=== PATIENT | male | born 1955 | race Caucasian/White ===

== ENCOUNTER → 2018-02-21 08:23 | Outpatient (CLI) | payer MEDICARE, SELFPAY ==
[2018-02-20 13:35] VITALS: BMI 25.9
[2018-02-21 10:19] LABS: ALB/GLOB Ratio 1.1 RATIO (0.9-2.4); AST(SGOT) 16 U/L (15-37); Alanine Aminotransfer ALT/SGPT 26 U/L (16-61); Albumin, Serum 3.6 g/dL (3.2-5.0); Alkaline Phosphatase 93 U/L (45-117); Anion Gap 5 (5-15); BUN 22 mg/dL (7-18); BUN/Creat Ratio 20.6 RATIO (10-20); Calcium,Total 10.2 mg/dL (8.5-10.1); Chloride 107 mmol/L (98-107); Creatinine, Serum 1.07 mg/dL (0.70-1.30); EST Glomerular Filtration Rate 74 mL/min (>60); Est Glom Filt Rate - Afr Amer 89 mL/min (>60); Globulin 3.3 g/dL (2.2-4.2); Glucose 86 mg/dL (74-106); Potassium 4.2 mmol/L (3.5-5.1); Protein, Total 6.9 g/dL (6.4-8.2); Sodium Level 140 mmol/L (136-145)
--- OUTSIDE RECORDS SUMMARY | 2018-04-27 21:07 | XMS RPT_ITS ---
:1955 Author Organization [facility] Care Team Providers Name Role Phone BROWN, RAJEEV Attending Unavailable BROWN, RAJEEV Primary Care Unavailable Brown, Rajeev Attending Unavailable Brown, Rajeev Referring Unavailable Brown, Rajeev Attending Unavailable Brown, Rajeev Referring Unavailable Brown, Rajeev Primary Care Unavailable Brown, Rajeev Attending Unavailable Brown, Rajeev Referring Unavailable Brown, Rajeev Attending Unavailable Brown, Rajeev Referring Unavailable Brown, Rajeev Attending Unavailable Brown, Rajeev Primary Care Unavailable Brown, Rajeev Referring Unavailable Brown, Rajeev Attending Unavailable Brown, Rajeev Referring Unavailable Brown, Rajeev Primary Care Unavailable PROBLEMS PROBLEMS DATE TYPE CONDITION / CODE ATTENDING STATUS SOURCE 02/28/2018 Unknown I10 - Essential Lee Rajeev Active [place] (primary) [facility] hypertension / Hospital I10(ICD-10) Repository 05/28/2017 Unknown Z00.00 - Encounter [place] Active [place] for general adult [facility] examination Repository without abnormal findings / Z00.00(ICD-10) PROCEDURES PROCEDURES No Procedure Records FoundRESULTS RESULTS BRAIN W/WO CONTRAST Observed: 02/28/2018 Status: F Source: JEA[place] 10:10 AM [facility] HOSPITAL REPOSITORY [facility] Imaging Services [address] [place] [address] Brain W/WO Contrast MR#: [id number] Acct: [id number] Name: KALYAN BARBOSA Rep #: [id number] : 1955 M 63 From: Shlomo Rose PCP: Rajeev Howard DO Status: REG CLI Study: Brain W/WO Contrast Date of Exam: 02/28/18 Exam# [id number] Ordering Dr: Rajeev Howard DO STUDY: MRI BRAIN WITH AND WITHOUT CONTRAST REASON FOR EXAM: Male, 63 years old. CHRONIS HEADACHES X 3 MONS. TECHNIQUE: Standardized multiplanar fat and water weighted pulse sequences were obtained. 9 ml of Gadavist contrast material was administered intravenously for the contrast portion of the examination. COMPARISON: None. FINDINGS: Normal size of the ventricles and extra-axial spaces for the patient's age. Normal white matter tracts of the supratentorial brain. Normal bilateral basal ganglia. Normal thalami. There is no extra-axial fluid accumulation. Normal flow voids within the major intracranial circulation suggesting patency by spin echo criteria. Normal venous enhancement. There is no enhancing intra-axial or extra-axial abnormality. Normal sella turcica, pituitary gland, infundibular stalk, optic chiasm and hypothalamus. Normal tectal plate and pineal gland. Normal midbrain, zane and medulla. Normal cerebellum. Normal basal cisterns. Normal bilateral temporal bones. Normal bilateral internal auditory canals. No demonstrated orbital abnormality, within the constraints of a routine brain study. There is mucoperiosteal inflammatory disease of the paranasal sinuses consistent with mild chronic sinusitis. MRI/Brain W/WO Contrast IMPRESSION: No acute intracranial abnormality or masses. Mild paranasal sinus disease. Electronically Signed: Shlomo Rose MD at 10:59 EST Tel , Service support , CC: Rajeev Howard DO Vice President Quality: Signed CATACHOL+VMA, 24 HR UR Collected: 02/22/2018 Status: F Source: JEA[place] 7:38 AM [facility] REPOSITORY TYPE CODE TESTS RESULT OUT OF RANGE REFERENCE UNITS LAB L3600.0300 Undefined ug/L Normal 7 EPINEPHRINE, UR LAB L3600.0400 0-20 ug/24 hr Normal 5 EPINEPHRINE, U24 LAB L3600.0500 Undefined ug/L Normal 56 NOREPINEPH,U R LAB L3600.0550 0-135 ug/24 hr Normal 39 NOREPINEPH,U 24 LAB L3600.0600 Undefined ug/L Normal 251 DOPAMINE,UR LAB L3600.0700 0-510 ug/24 hr Normal 176 DOPAMINE,U24 Result Comment: Performed at: [address] [id number] Care Director: Seamus Yee MD, Phone: [phone] TESTING PERFORMED AT [facility]. ORIGINAL REPORT ON FILE IN LAB CONTAINS ADDITIONAL TEST SITE INFORMATION. LAB L3600.0900 Undefined mg/L Normal VMA,UR 4.3 LAB L3600.1000 0.0-7.5 mg/24 hr Normal VMA,24UR 3.0 Result Comment: This test was developed and its performance characteristics determined by [facility]. It has not been cleared or approved by the Food and Drug Administration. Performed By: #### L3600.0055 #### [facility] (refer to report for specific site) refer to report for address and phone number COMPREHENSIVE METABOLIC Collected: 02/21/2018 Status: F Source: JEANA [place] 8:31 AM [facility] REPOSITORY TYPE CODE TESTS RESULT OUT OF RANGE REFERENCE UNITS LAB L501.0100 74-106 mg/dL Normal GLU 86 Result Comment: Please note revised GLUCOSE reference range effective 2017. LAB L501.1000 7-18 mg/dL High BUN 22 LAB L501.1100 0.70-1.30 mg/dL Normal CREAT,SERUM 1.07 Result Comment: The validity of the calculated GFR AND GFRAA in patients over 70 years has not been determined. Clinical correlation is essential. LAB L501.1110 >60 mL/min Normal EST GFR 74 Result Comment: Non- GFR Calc LAB L501.1115 >60 mL/min Normal EST GFR - AA 89 Result Comment: GFR Calc LAB L501.1300 10-20 RATIO High BUN/CRE 20.6 LAB L501.1500 6.4-8.2 g/dL T Normal PROT 6.9 LAB L501.1800 3.2-5.0 g/dL Normal ALB 3.6 LAB L501.1950 2.2-4.2 g/dL Normal GLOB 3.3 LAB L501.2000 0.9-2.4 RATIO Normal A/G 1.1 LAB L501.2200 8.5-10.1 mg/dL High CA 10.2 LAB L501.4100 15-37 U/L Normal AST 16 LAB L501.4305 45-117 U/L Normal ALK P 93 LAB L501.4405 16-61 U/L Normal ALT 26 LAB L501.4600 0.20-1.00 mg/dL T Normal BILI 0.50 LAB L501.5300 136-145 mmol/L NA Normal 140 LAB L501.5600 3.5-5.1 mmol/L K Normal 4.2 LAB L501.5900 98-107 mmol/L CL Normal 107 LAB L501.6100 21.0-32.0 mmol/L Normal CO2 28.0 LAB L501.6200 5-15 Normal GAP 5 Performed By: #### L500.4050 #### [facility] [address] [place], [address] INTERNAL MEDICINE Observed: 02/20/2018 Status: F Source: JEANA OFFICE VISIT 2:05 PM [facility] REPOSITORY [facility] [address] [place] [address] [place] [address] OFFICE VISIT Date of Service: 02/20/18 MR#: [id number] Acct: [id number] Name: KALYAN BARBOSA Rep #: [id number] : 1955 Provider: Rajeev Howard DO Age/Sex: 63/M Location: [facility] Status: Signed Intake Vital Signs02/20/18 Body Mass Index (BMI) 25.9 Intake Visit Reasons: BP MED PROB, INS INELIGIBLE Chief Complaint: Prob with BP Med - BP going up in the evenings Is patient in pain?: No Allergies No Known Allergies Allergy (Unverified 02/20/18 13:34) Medications valsartan 320 mg-hydrochlorothiazide 12.5 mg tablet 1 tab PO DAILY #30 tab 01/23/18 [Rx Confirmed 02/20/18] PFSH Medical History Hypertension (Chronic) Surgical History History of back surgery (Acute) History of eye surgery (Acute) History of knee surgery (Acute) Family History Father CVA (cerebral vascular accident) Hypertension Social History Smoking Status: Never smoker alcohol intake: current alcohol intake frequency: holidays/special occasions only substance use type: does not use what type of physical activity do you participate in: weight training, bicycling, running frequency: daily HPI HPI Chief Complaint: Prob with BP Med - BP going up in the evenings Details: KALYAN BARBOSA, is a 63 M who presents to the office today for elevation of his blood pressure that occurs in the evening. And always associated with a worsening headache. ROS Const Constitutional: Positive for headache(s) (When BP is in the 140's/150's); no chills, fatigue, fever(s), frequent falls, malaise, weakness, sleep problems or change in appetite Eyes Eyes: No blurry vision, change in vision, double vision, discharge or visual disturbances ENT ENT: Positive for headache(s) (When BP is in the 140's/150's); no abnormal hearing, ear pain, ear pressure, tinnitus or dizziness/vertigo Resp Respiratory: No cough, shortness of breath or wheezing Cardio Cardiology: Positive for other (By evening BP goes up 145/98, 160/100); no chest pain at rest, chest pain with exertion, shortness of breath, dyspnea on exertion, generalized swelling, irregular heart rhythm, lightheadedness, orthopnea, fast heart rate or palpitations Gastro GI: No abdominal pain, change in bowel habits, constipation, diarrhea, nausea/dyspepsia or vomiting Genitourinary Male: No difficulty urinating, burning urination, painful urination, urinary incontinence, urinary frequency, urinary urgency, urinary hesitancy, urinary retention, blood in urine, Frequent nighttime urination/ nocturia, sexual problems, testicle lump or testicle pain Musc Musculoskeletal: No joint pain, back pain, joint swelling, limited range of motion, numbness or tingling Skin Skin: No change in skin color, itching, rash or wounds Breast Breast: No breast lump or breast pain Neuro Neurology: Positive for headache(s) (When BP is in the 140's/150's); no frequent falls, weakness, visual disturbances, abnormal hearing, numbness, tingling, unsteady gait/balance, dizziness, loss of vision or memory loss Psych Psychiatric: No change in appetite, No memory loss, No anxiety, No depression, No Thoughts of harming yourself/Others Endo Endocrine: No fatigue, heat intolerance, increased thirst/drinking, increased hunger or increased urination Aller/Imm Allergy/Immunologic: No wheezing, itchy eyes or seasonal allergy symptoms Darrian/Lymp Hematologic/Lymphatic: No easy bleeding, easy bruising or enlarged lymph nodes Exam Const General: cooperative, healthy appearing Nutritional Appearance: average body habitus Orientation: oriented x3 HENMT Head: normal to inspection Eyes General: appearance normal, both eyes and all related structures Sclera: sclerae normal Cornea: corneas normal Pupils: PERRL Direct ophthalmoscopy: normal light reflex, fundi normal bilaterally Neck Neck: normal visual inspection Neck mass: No Thyroid: thyroid normal Chest Chest palpation AND inspection: normal inspection of the chest Resp Effort AND Inspection: normal respiratory effort Auscultation: Bilateral: Clear to Auscultation GI Rectal Exam: visual inspection normal, prostate normal, normal sphincter tone Skin General: no rashes or lesions noted Neuro General: alert, awake Cranial Nerves: CN's II-XI intact bilaterally Cognition: normal cognition Speech: speech normal Gait: normal gait Motor: muscle tone normal throughout Extrem General: normal to inspection, normal exam except as noted Assessment AND Plan Problems 1. Hypertension I10 2. Chronic headaches R51 Plan This patient comes presenting essentially with a chronic headache. He says he has agreed to headache all at time. And this association with the headache as the headache increases in intensity he has blood pressure goes up so that even though the blood pressure is normal in the morning toward the end of the day the blood pressure is quite high as high as 160/110 according to this patient. Since his morning pressures are always normal as was his pressure now seems to me the headache is causing the elevated pressure not a failure of medication. So I am going to look for secondary causes of hypertension as well as primary [employer] causes and then get back with this patient after those results are in. Orders Orders: Medications Discontinued: losartan-hydrochlorothiazide 100-12.5 mg Discontinued Reaso1 tab PO QDAY 120 tabs 4RF n: Order Changed Coding Level of Care Code Off vis,est,level 3 Diagnoses Hypertension I10 Chronic headaches R51 02/20/18 1405 <Electronically signed by Rajeev Howard DO> Date Rajeev Howard DO Cosigner Signature: Date (if applicable) CC: INTERNAL MEDICINE Observed: 01/03/2018 Status: F Source: JEANA OFFICE VISIT 4:58 PM [facility] Internal Medicine [address] [place] [address] [address] [place] [address] OFFICE VISIT Date of Service: 01/03/18 MR#: [id number] Acct: [id number] Name: KALYAN BARBOSA Rep #: [id number] : 1955 Provider: Rajeev Howard DO Age/Sex: 62/M Location: [facility] Status: Signed Intake Vital Signs01/03/18 Body Mass Index (BMI) 25.9 01/03/18 Height 5 ft 10 in 01/03/18 Weight: 182 lb 2 oz Intake Visit Reasons: migraines, goes by ED [employer] Required: No Accompanied by: None Is patient in pain?: No Allergies No Known Allergies Allergy (Unverified 04/25/17 09:52) Medications losartan 100 mg-hydrochlorothiazide 12.5 mg tablet 1 tab PO QDAY #120 tab 12/11/17 [Rx] valsartan 160 mg-hydrochlorothiazide 12.5 mg tablet 1 tab PO DAILY #30 tab 01/03/18 [Rx Confirmed 01/03/18] PFSH Medical History Hypertension (Chronic) Surgical History History of eye surgery (Acute) History of back surgery (Acute) History of knee surgery (Acute) Family History Father CVA (cerebral vascular accident) Hypertension Social History Smoking Status: Never smoker alcohol intake: current alcohol intake frequency: holidays/special occasions only substance use type: does not use what type of physical activity do you participate in: weight training, bicycling, running frequency: daily HPI HPI Details: KALYAN BARBOSA, is a 62 M who presents to the office today for headaches,Not in one location, usually unilateral, no nausea. ROS Const Constitutional: Positive for headache(s); no body ache, chills, fatigue, fever(s), frequent falls, weight change, sleep problems, change in appetite, snoring, excessive sweating or weakness Eyes Eyes: No blurry vision, change in vision, eye pain or light sensitivity ENT ENT: Positive for headache(s) and neck pain; no abnormal hearing, ear pain, tinnitus, nasal congestion, nasal discharge or sore throat Resp Respiratory: No snoring, cough, shortness of breath or wheezing Cardio Cardiology: No excessive sweating, chest pain at rest, chest pain with exertion, shortness of breath, dyspnea on exertion, orthopnea, palpitations or lightheadedness Gastro GI: No abdominal pain, change in bowel habits, diarrhea, constipation, vomiting, nausea/dyspepsia or cramping Musc Musculoskeletal: Positive for neck pain; no abnormal walking, joint pain, back pain, limited range of motion, numbness, tingling or muscle weakness Skin Skin: No redness, dry skin, itching, lesions, wounds or rash Neuro Neurology: Positive for headache(s); no frequent falls, weakness, abnormal hearing, abnormal walking, numbness, tingling, abnormal speech, dizziness or memory loss Psych Psychiatric: No change in appetite, No memory loss, No anxiety, No depression, No Thoughts of harming yourself/Others Endo Endocrine: No fatigue, excessive sweating, cold intolerance, increased thirst/drinking, heat intolerance, increased hunger or flushing Aller/Imm Allergy/Immunologic: No wheezing, itchy eyes, seasonal allergy symptoms or hives Darrian/Lymp Hematologic/Lymphatic: No easy bleeding, easy bruising or enlarged lymph nodes Exam Const General: cooperative, healthy appearing Nutritional Appearance: average body habitus Orientation: oriented x3 HENMT Head: normal to inspection Eyes General: appearance normal, both eyes and all related structures Sclera: sclerae normal Cornea: corneas normal Pupils: PERRL Direct ophthalmoscopy: normal light reflex, fundi normal bilaterally Neck Neck: normal visual inspection Neck mass: No Thyroid: thyroid normal Chest Chest palpation AND inspection: normal inspection of the chest Resp Effort AND Inspection: normal respiratory effort Auscultation: Bilateral: Clear to Auscultation GI Rectal Exam: visual inspection normal, prostate normal, normal sphincter tone Musc Musculoskeletal: No joint tenderness, joint redness, joint warmth, decreased ROM, spinal deformity, scoliosis to L, scoliosis to R, lordosis or muscle weakness Skin General: no rashes or lesions noted Neuro General: alert, awake Cranial Nerves: CN's II-XI intact bilaterally Cognition: normal cognition Speech: speech normal Gait: normal gait Motor: muscle tone normal throughout Extrem General: normal to inspection, normal exam except as noted Assessment AND Plan Problems 1. Hypertension I10 Plan This patient is a poorly controlled hypertensive. I think that is the cause of his headaches. They do not fit the pattern of migraines and physical exam was completely within normal limits. I have changed his anti-hypertensive. He is to call me if the headaches continue, and he is to monitor his blood pressures at home. Medications New: Coding Level of Care Code Off vis,est,level 3 Diagnoses Hypertension I10 01/03/18 5821 <Electronically signed by Rajeev Howard DO> Date Rajeev Howard DO Cosigner Signature: Date (if applicable) CC: CBC Collected: 04/25/2017 Status: F Source: [facility] [employer] 11:29 AM [facility] REPOSITORY TYPE CODE TESTS RESULT OUT OF REFERENCE UNITS RANGE LAB WBC(LOINC) 4.60-10.80 10 3/mcL WBC 8.90 LAB RBCCT(LOINC 4.04-6.13 10 6/mcL ) RBC 4.95 LAB HGB(LOINC) 14.0-18.0 G/dL Hgb 15.2 LAB HCT(LOINC) 42.0-52.0 % Hct 45.4 LAB MCV(LOINC) 80.0-94.0 fL MCV 91.6 LAB MCH(LOINC) 27.0-31.2 pg MCH 30.6 LAB MCHC(LOINC) 31.8-35.4 G/dL MCHC 33.5 LAB RDW(LOINC) 11.5-14.5 % RDW 13.5 LAB PLT(LOINC) 130-400 10 3/mcL Platelet 297 LAB MPV(LOINC) 7.4-10.4 fL MPV 7.9 Performed By: #### CBC, ADIFF, ANEU, LIPID, GFR, CMP #### [facility] [address] [address] .AUTO DIFF Collected: 04/25/2017 Status: F Source: [facility] 11:29 AM [facility] REPOSITORY TYPE CODE TESTS RESULT OUT OF REFERENCE UNITS RANGE LAB JEFFERY(LOINC) 37.0-80.0 % Neutrophil % 73.7 LAB LYM(LOINC) 10.0-50.0 % Lymphocyte % 16.8 LAB MON(LOINC) 1.7-13.0 % Monocyte % 6.8 LAB EO(LOINC) 0.0-7.0 % Eosinophil % 1.5 LAB BAS(LOINC) 0.0-2.5 % Basophil % 1.2 LAB ABLYM(LOIN 0.77-3.85 10 3/mcL C) Lymphocyte, 1.50 Absolute LAB RADHA(LOINC 0.15-1.00 10 3/mcL ) Monocyte, 0.60 Absolute LAB AEOS(LOINC 0.00-0.40 10 3/mcL ) Eosinophil, 0.10 Absolute LAB ABAS(LOINC 0.00-0.19 10 3/mcL ) Basophil, 0.10 Absolute Performed By: #### CBC, ADIFF, ANEU, LIPID, GFR, CMP #### [address] [address] .NEUABS Collected: 04/25/2017 Status: F Source: [facility] [employer] 11:29 [facility] REPOSITORY TYPE CODE TESTS RESULT OUT OF REFERENCE UNITS RANGE LAB ANEU(LOINC) 2.85-6.16 10 3/mcL High Neutrophil, 6.60 Absolute Performed By: #### CBC, ADIFF, ANEU, LIPID, GFR, CMP #### [address] [address] LIPID Collected: 04/25/2017 Status: F Source: [facility] 11:29 [facility] REPOSITORY TYPE CODE TESTS RESULT OUT OF REFERENCE UNITS RANGE LAB CHOL(LOINC 131-200 mg/dL ) Cholesterol High 215 Result Comment: Cholesterol Reference Interval: Less than 200 Desirable 200-239 Borderline high risk 240 and above High risk LAB TRIG(LOINC) 40-150 mg/dL Triglycerides 66 Result Comment: Triglyceride Reference Interval: Less than 150 Normal 150-199 Borderline high risk 200-499 High risk 500 or higher Very high risk LAB HD(LOINC) 35-90 mg/dL HDL Cholesterol 61 Result Comment: HDL Reference Interval: Less than 40 Low - high risk 60 or above Optimal/lowers risk LAB LDL(LOINC) 0-130 mg/dL LDL High Cholesterol 141 Result Comment: LDL is a calculated result and requires a 12-hr fast. LDL Reference Interval: Less than 100 Optimal 100-129 Near or above optimal 130-159 Borderline high risk 160-189 High risk 190 and above Very high risk Performed By: #### CBC, ADIFF, ANEU, LIPID, GFR, CMP #### [facility] [address] [address] .GFR Collected: 04/25/2017 Status: F Source: [facility] 11:29 [facility] REPOSITORY TYPE CODE TESTS RESULT OUT OF REFERENCE UNITS RANGE LAB GFRAA(LOINC ml/min/1.73 ) sqm GFR 87 Latvian Result Comment: GFR Population mean for , Non- Americans Ages 20-29 = 116 mL/min/1.73 sq.m. Ages 30-39 = 107 mL/min/1.73 sq.m. Ages 40-49 = 99 mL/min/1.73 sq.m. Ages 50-59 = 93 mL/min/1.73 sq.m. Ages 60-69 = 85 mL/min/1.73 sq.m. Ages 70+ = 75 mL/min/1.73 sq.m. Chronic Kidney Disease: Less than 60 mL/min/1.73 square meters End Stage Renal Disease: Less than 15 mL/min/1.73 square meters LAB GFRNO(LOINC) ml/min/1.73sqm GFR Non- >60 Result Comment: GFR Population mean for , Non- Americans Ages 20-29 = 116 mL/min/1.73 sq.m. Ages 30-39 = 107 mL/min/1.73 sq.m. Ages 40-49 = 99 mL/min/1.73 sq.m. Ages 50-59 = 93 mL/min/1.73 sq.m. Ages 60-69 = 85 mL/min/1.73 sq.m. Ages 70+ = 75 mL/min/1.73 sq.m. Chronic Kidney Disease: Less than 60 mL/min/1.73 square meters End Stage Renal Disease: Less than 15 mL/min/1.73 square meters Performed By: #### CBC, ADIFF, ANEU, LIPID, GFR, CMP #### [facility] [address] [address] [place], [place] [address] CMP Collected: 04/25/2017 Status: F Source: [facility] 11:29 AM [facility] REPOSITORY TYPE CODE TESTS RESULT OUT OF REFERENCE UNITS RANGE LAB 1547-9 80-115 mg/dL GLUCOSE 87 LAB NA(LOINC) 136-146 mEq/L Sodium Level 139 LAB K(LOINC) 3.5-5.1 mEq/L Potassium Level 5.0 LAB CL(LOINC) 98-107 mEq/L Chloride 104 LAB CO2(LOINC) 23-31 mEq/L CO2 27 LAB EBAL(LOINC mEq/L ) Electrolyte Balance 8.0 LAB BUN(LOINC) 7.0-18.0 mg/dL BUN High 18.1 LAB CRE(LOINC) 0.6-1.2 mg/dL Creatinine Lvl (s) 1.0 LAB BC(LOINC) 7-27 ratio BUN/Creatinine 18 Ratio LAB CA(LOINC) 8.4-10.2 mg/dL Calcium Lvl High 11.0 LAB PROT(LOINC 6.0-8.3 G/dL ) Total Protein 7.1 LAB ALB(LOINC) 3.4-4.8 G/dL Albumin Level 4.5 LAB GLB(LOINC) G/dL Globulin 2.6 LAB AG(LOINC) 1.1-2.5 ratio A/G Ratio 1.7 LAB BILT(LOINC 0.2-1.0 mg/dL ) Bili Total 0.3 LAB AP(LOINC) 40-135 IU/L Alk Phos 97 LAB AST(LOINC) 10-40 IU/L AST/SGOT 23 LAB ALT(LOINC) 10-35 IU/L ALT/SGPT 18 Performed By: #### CBC, ADIFF, ANEU, LIPID, GFR, CMP #### [place] [place], [place] [address] INTERNAL MEDICINE Observed: 04/25/2017 Status: F Source: JEANA OFFICE VISIT 10:42 AM [facility] REPOSITORY [facility] [address] [place] [address] OFFICE VISIT Date of Service: 04/25/17 MR#: [id number] Acct: [id number] Name: KALYAN BARBOSA Rep #: [id number] : 1955 Provider: Rajeev Howard DO Age/Sex: 62/M Location: [facility] Status: Signed Intake Vital Signs04/25/17 Height 5 ft 10 in 04/25/17 Weight: 181 lb 04/25/17 Body Mass Index (BMI) 25.9 04/25/17 Blood Pressure 128/81 04/25/17 Blood Pressure Location Lt brachial Intake Visit Reasons: YEARLY CHECK UP Chief Complaint: yearly physical Is patient in pain?: No Allergies No Known Allergies Allergy (Unverified 04/25/17 09:52) Medications losartan 100 mg-hydrochlorothiazide 12.5 mg tablet 1 tab PO QDAY #120 tab 04/25/17 [Rx Confirmed 04/25/17] PFSH Medical History Hypertension (Chronic) Surgical History History of back surgery (Acute) History of knee surgery (Acute) Family History Father CVA (cerebral vascular accident) Hypertension Social History Smoking Status: Never smoker alcohol intake: current alcohol intake frequency: holidays/special occasions only substance use type: does not use what type of physical activity do you participate in: weight training, bicycling, running frequency: daily HPI HPI Chief Complaint: yearly physical Details: KALYAN BARBOSA, is a 62 M who presents to the office today for a check up. ROS Const Constitutional: No weight change, body ache, chills, fatigue, sleep problems, fever(s), change in appetite, snoring, weakness, frequent falls, headache(s) or excessive sweating Eyes Eyes: No change in vision, eye pain, light sensitivity or blurry vision ENT ENT: No headache(s), abnormal hearing, ear pain, tinnitus, nasal congestion, sore throat or neck pain Resp Respiratory: No snoring, cough, shortness of breath or wheezing Cardio Cardiology: No excessive sweating, chest pain at rest, chest pain with exertion, shortness of breath, dyspnea on exertion, palpitations, orthopnea or lightheadedness Gastro GI: No abdominal pain, change in bowel habits, constipation, diarrhea, vomiting, nausea/dyspepsia or cramping Musc Musculoskeletal: No neck pain, abnormal walking, joint pain, back pain, limited range of motion, numbness, tingling or muscle weakness Skin Skin: No redness, dry skin, itching, lesions, wounds or rash Neuro Neurology: No weakness, frequent falls, headache(s), abnormal hearing, abnormal walking, numbness, tingling, abnormal speech, dizziness or memory loss Psych Psychiatric: No change in appetite, No memory loss, No anxiety, No depression, No Thoughts of harming yourself/Others Endo Endocrine: No fatigue, excessive sweating, cold intolerance, increased thirst/drinking, heat intolerance, flushing or increased hunger Aller/Imm Allergy/Immunologic: No wheezing, itchy eyes, hives or seasonal allergy symptoms Darrian/Lymp Hematologic/Lymphatic: No easy bleeding, easy bruising or enlarged lymph nodes Exam Const General: cooperative, healthy appearing Nutritional Appearance: average body habitus Orientation: oriented x3 HENMT Head: normal to inspection Eyes General: appearance normal, both eyes and all related structures Neck Neck: normal visual inspection Neck mass: No Thyroid: thyroid normal Chest Chest palpation AND inspection: normal inspection of the chest Resp Effort AND Inspection: normal respiratory effort Auscultation: Bilateral: Clear to Auscultation GI Rectal Exam: visual inspection normal, prostate normal, normal sphincter tone Scrotum: scrotum normal Testes: normal Musc Musculoskeletal: No joint tenderness, joint redness, joint warmth, decreased ROM, spinal deformity, scoliosis to L, scoliosis to R, lordosis or muscle weakness Skin General: no rashes or lesions noted Neuro General: alert, awake Cranial Nerves: CN's II-XI intact bilaterally Cognition: normal cognition Speech: speech normal Gait: normal gait Motor: muscle tone normal throughout Extrem General: normal to inspection, normal exam except as noted Assessment AND Plan 1. Preventative health care Z00.00 Plan Mr. Barbosa is here for a well male exam. Colonoscopy is up-to-date immunizations are up-to-date. He needs preventative blood work as well as blood work to evaluate his renal status. We discussed his exercise regime which is very good he has no weight issues he has no dietary issues in general his health was excellent. 2. Hypertension I10 Plan Blood pressure is under excellent control. Orders Orders: Plan Detail Other Medications New: Follow Up 1 Year Coding Level of Care Code Off vis,new,prev 40-64yrs Diagnoses Preventative health care Z00.00 Hypertension I10 04/25/17 1042 <Electronically signed by Rajeev Howard DO> Date Rajeev Howard DO Cosigner Signature: Date (if applicable) CC: ALLERGIES ALLERGIES DATE TYPE / CODE NAME / CODE REACTION SEVERITY SOURCE 02/20/2018 Drug No Known Unknown [facility] Allergy/4160 Allergies/F00 Hospital 79673(SNOMED 7650670(RXNOR Repository CT) M) ENCOUNTERS ENCOUNTERS ADMIT/DISCHARGE ACCOUNT NUMBER ADMITTING ENCOUNTER LOCATION SOURCE CLASS 02/28/2018 [id number] Ambulatory [facility] ding:MRI Repository 02/22/2018 [id number] Ambulatory [facility] ding:LAB.FUT Repository URE 02/21/2018 [id number] Ambulatory [facility] ding:MTLAB Repository 02/20/2018/02/20/19 [id number] Ambulatory BMSBuilding: [place] 19 [facility] [place] 01/03/2018/01/04/20 [id number] Ambulatory BMSBuilding: [place] 18 [facility] [place] 04/25/2017/04/26/19 [id number] Ambulatory [address] ding:[facility] Repository 04/25/2017/04/26/19 [id number] Ambulatory BMSBuilding: [place] 18 [facility] [place] PAYERS PAYERS ENCOUNTER GUARANTOR PAYER SUBSCRIBER SOURCE 02/28/2018 [place] E Primary [place] [id number] Insurance:JOSE C ARTB: [facility] [place]: [id number] [id number] Repository [address]Uyu: 330) Date:6026-63-97RD [phone] () 127529GV [place] KAMARA [address]MV: 02/28/2018 Secondary NOT GIVENUNK [place] Insurance:SELF PAY [facility] Number: Effective Repository Date:2018-02-20 02/22/2018 KALYAN E Primary KALYAN E [place] [id number] Insurance:AETNA ANDERSONDOB: Community ANTONY RDAPPLE MCRPolicy Number: [id number] HospitalBR4NKZEffective Repository [address]Cms: (330) Date:1327-62-80PP [phone] () 781675QS [place] [address]HK: 02/22/2018 Secondary NOT GIVENUNK [place] Insurance:SELF PAY [facility] Number: Effective Repository Date:2018-02-21 02/21/2018 KALYAN E Primary KALYAN E [place] [id number] Insurance:AETNA ANDERSONDOB: Community ANTONY RDAPPLE MCRPolicy Number: [id number], [place] [id number] Repository [address]Mds: (330) Date:2425-72-38HM [phone] () [id number] [place] [address]XZ: 02/21/2018 Secondary NOT GIVENUNK [place] Insurance:SELF PAY [facility] Number: Effective Repository Date:2018-02-21 02/20/2018 KALYAN Primary KALYAN [place] [id number] Insurance:AETNA ANDERSONDOB: Community ANTONY GARCIAAPPLE MCRPolicy Number: [id number], [place] [id number] Repository [address]Gny: (330) Date:2338-97-76YL [phone] () [id number] [address]IG: 02/20/2018 Secondary NOT GIVENUNK [place] Insurance:SELF PAY [facility] Number: Effective Repository Date:2018-02-14 01/03/2018 KALYAN Primary KALYAN [place] [id number] Insurance:AULTCAREPol ANDERSONDOB: Community ANTONY RDAPPLE icy Number: [id number], [place] [id number] Repository [address]Oqv: (330) Date:0930-99-93RX [phone] (HP) [place] [address]AQ: 01/03/2018 Secondary NOT GIVENUNK [place] Insurance:SELF PAY [facility] Number: Effective Repository Date:2018-01-01 04/25/2017 KALYAN E Primary KALYAN E [facility] CHELSEY JRDOB: Insurance:[facility] CHELSEY DOB: [facility] [id number] Number: [id number] Repository ANTONY GÓMEZ [id number] [address] [place] [address] Date:2017-04-25 - [facility], [address]Zdt: (192) 2710-28-53Gsqq [place] [address]Tsp: [phone] Name:[facility] Box (HP)Tel: [phone], [place] (HP) (WP) [address]WZ: (WP) [phone] 04/25/2017 Kalyan Primary [place]an [place] [id number] [facility] Antony Gómez icy Number: [id number], [place] [id number] Repository [address]Dvl: 330) Date:9108-62-38UO [phone] () [place] [address]LA: 04/25/2017 Secondary NOT GIVENUNK [place] Insurance:SELF PAY [facility] Number: Effective Repository Date:2017-04-25
== END ==
PROVIDERS: Family Provider Family Medicine; PCP Family Medicine; Referring Provider Family Medicine; Visit Provider Family Medicine
DX: I10 Essential (primary) hypertension (principal)
CPT/HCPCS: 36415; 80053

== ENCOUNTER → 2018-02-22 07:33 | Outpatient (CLI) | payer MEDICARE, SELFPAY ==
[2018-02-20 13:35] VITALS: BMI 25.9
[2018-02-28 14:07] LABS: Dopamine, UR 251 ug/L (Undefined); Epinephrine, 24Ur 5 ug/24 hr (0-20); Epinephrine, Ur 7 ug/L (Undefined); Norepinephrine, 24Ur 39 ug/24 hr (0-135); Norepinephrine, Ur 56 ug/L (Undefined); VMA, UR 4.3 mg/L (Undefined)
[2018-03-01 11:26] LABS: Dopamine, 24Ur 176 ug/24 hr (0-510)
--- OUTSIDE RECORDS SUMMARY | 2018-04-28 14:34 | XMS RPT_ITS ---
:1955 Author Organization OHIP Care Team Providers Name Role Phone BROWN, RAJEEV Attending Unavailable BROWN, RAJEEV Primary Care Unavailable Brown, Rjaeev Attending Unavailable Brown, Rajeev Primary Care Unavailable Brown, Rajeev Referring Unavailable Brown, Rajeev Attending Unavailable Brown, Rajeev Referring Unavailable Brown, Rajeev Primary Care Unavailable Brown, Rajeev Attending Unavailable Brown, Rajeev Referring Unavailable Brown, Rajeev Attending Unavailable Brown, Rajeev Referring Unavailable Brown, Rajeev Attending Unavailable Brown, Rajeev Referring Unavailable Brown, Rajeev Primary Care Unavailable Brown, Rajeev Attending Unavailable Brown, Rajeev Referring Unavailable PROBLEMS PROBLEMS DATE TYPE CONDITION / CODE ATTENDING STATUS SOURCE 02/28/2018 Unknown I10 - Essential Lee Rajeev Active [place] (primary) [facility] hypertension / Hospital I10(ICD-10) Repository 05/28/2017 Unknown Z00.00 - Encounter LeeClevelandRajeev Active [place] for general adult [facility] examination Repository without abnormal findings / Z00.00(ICD-10) PROCEDURES PROCEDURES No Procedure Records FoundRESULTS RESULTS BRAIN W/WO CONTRAST Observed: 02/28/2018 Status: F Source: [place] 10:10 AM [facility] REPOSITORY [facility] Imaging Services [address] [place] [address] Brain W/WO Contrast MR#: [id number] Acct: [id number] Name: KALYAN BARBOSA Rep #: [id number] : 1955 M 63 From: Shlomo Rose PCP: Rajeev Howard DO Status: REG CLI Study: Brain W/WO Contrast Date of Exam: 02/28/18 Exam# [id number] Ordering Dr: Rajeev Howard DO STUDY: MRI [...] Service support , CC: Rajeev Howard DO Fish And Wildlife Biologist: Signed CATACHOL+VMA, 24 HR UR Collected: 02/22/2018 Status: F Source: [place] 7:38 AM [facility] REPOSITORY TYPE CODE TESTS RESULT OUT OF RANGE REFERENCE UNITS LAB L3600.0300 Undefined ug/L Normal 7 EPINEPHRINE, UR LAB L3600.0400 0-20 ug/24 hr Normal 5 EPINEPHRINE, U24 LAB L3600.0500 Undefined ug/L Normal 56 NOREPINEPH,U R LAB L3600.0550 0-135 ug/24 hr Normal 39 NOREPINEPH,U 24 LAB L3600.0600 Undefined ug/L Normal 251 DOPAMINE,UR LAB L3600.0700 0-510 ug/24 hr Normal 176 DOPAMINE,U24 Result Comment: Performed at: [address] [id number] Carton Liner: Seamus Yee MD, Phone: [phone] TESTING PERFORMED AT [facility]. ORIGINAL REPORT ON FILE IN LAB [...] Status: F Source: JEA[place] GIVENS 8:31 AM [facility] REPOSITORY TYPE CODE TESTS RESULT OUT OF [...] GAP 5 Performed By: #### L500.4050 #### [facility] [address], [address] INTERNAL MEDICINE Observed: 02/20/2018 Status: F Source: JEA[place] OFFICE VISIT 2:05 PM [facility] REPOSITORY [facility] [address] [place] [address] OFFICE VISIT Date of Service: 02/20/18 MR#: [id number] Acct: [id number] Name: KALYAN BARBOSA Rep #: [id number] : 1955 Provider: Rajeev Howard DO Age/Sex: 63/M [place] [facility] [place] Status: Signed Intake Vital Signs02/20/18 Body Mass [...] causes of hypertension as well as primary REPEAT CHIEF causes and then get back with this [...] F Source: J[place] OFFICE VISIT 4:58 PM [facility] [address] [place] [address] [place] [address] OFFICE VISIT Date of Service: 01/03/18 MR#: [id number] Acct: [id number] Name: KALYAN BARBOSA Rep #: [id number] : 1955 Provider: Rajeev Howard DO Age/Sex: 62/M [place] [facility] [place] Status: Signed Intake Vital Signs01/03/18 Body Mass Index (BMI) 25.9 01/03/18 Height 5 ft 10 in 01/03/18 Weight: 182 lb 2 oz Intake Visit Reasons: migraines, goes by ED Sample Clerk Required: No Accompanied by: None Is patient [...] Off vis,est,level 3 Diagnoses Hypertension I10 01/03/18 1700 <Electronically signed by Rajeev Howard DO> Date Rajeev Howard DO Cosigner Signature: Date (if applicable) CC: CBC Collected: 04/25/2017 Status: F Source: [place] 11:29 AM [facility] REPOSITORY TYPE CODE TESTS RESULT OUT OF [...] ADIFF, ANEU, LIPID, GFR, CMP #### [facility] [address] [address] .AUTO DIFF Collected: 04/25/2017 Status: F Source: PARESHF[facility] [employer] 11:29 AM [facility] REPOSITORY TYPE CODE TESTS RESULT OUT OF [...] CBC, ADIFF, ANEU, LIPID, GFR, CMP #### [address] [address] .NEUABS Collected: 04/25/2017 Status: F Source: PARESH [place] 11:29 [facility] REPOSITORY TYPE CODE TESTS RESULT OUT OF REFERENCE UNITS RANGE LAB ANEU(LOINC) 2.85-6.16 10 3/mcL High Neutrophil, 6.60 Absolute Performed By: #### CBC, ADIFF, ANEU, LIPID, GFR, CMP #### [address] [address] LIPID Collected: 04/25/2017 Status: F Source: [facility] 11:29 [facility] REPOSITORY TYPE CODE TESTS RESULT [...] ADIFF, ANEU, LIPID, GFR, CMP #### Paresh [address] [address] .GFR Collected: 04/25/2017 Status: F Source: [facility] 11:29 AM [facility] REPOSITORY TYPE CODE TESTS RESULT OUT OF REFERENCE UNITS RANGE LAB GFRAA(LOINC ml/min/1.73 ) sqm GFR 87 [place] Result Comment: GFR Population mean for , [...] ADIFF, ANEU, LIPID, GFR, CMP #### [facility] [address] [place], [place] [address] CMP Collected: 04/25/2017 Status: F Source: [facility] 11:29 AM [facility] REPOSITORY TYPE [...] CBC, ADIFF, ANEU, LIPID, GFR, CMP #### [address] [place], [place] [address] INTERNAL MEDICINE Observed: 04/25/2017 Status: F Source: [place] OFFICE VISIT 10:42 AM [facility] REPOSITORY [facility] [address] [place] [address] OFFICE VISIT Date of Service: 04/25/17 MR#: [id number] Acct: [id number] Name: KALYAN BARBOSA Rep #: [id number] : 1955 Provider: Rajeev Howard DO Age/Sex: 62/M [place] [facility] [place] Status: Signed Intake Vital Signs04/25/17 Height 5 [...] SEVERITY SOURCE 02/20/2018 Drug No Known Unknown [facility] Allergy/4160 Allergies/F00 Hospital 28665(SNOMED 9260405(RXNOR Repository CT) M) ENCOUNTERS ENCOUNTERS ADMIT/DISCHARGE ACCOUNT NUMBER ADMITTING ENCOUNTER LOCATION SOURCE CLASS 02/28/2018 [id number] Ambulatory [facility] ding:MRI Repository 02/22/2018 [id number] Ambulatory [facility] ding:LAB.FUT Repository URE 02/21/2018 [id number] Ambulatory [facility] ding:MTLAB Repository 02/20/2018/02/20/19 [id number] Ambulatory BMSBuilding: [place] 19 [facility] [place] [place] Repository 01/03/2018/01/04/20 [id number] Ambulatory BMSBuilding: [place] 18 [facility] [place] [place] Repository 04/25/2017/04/26/19 [id number] Ambulatory [address] ding:[facility] Repository 04/25/2017/04/26/19 [id number] Ambulatory BMSBuilding: [place] 18 [facility] [place] Repository PAYERS PAYERS ENCOUNTER GUARANTOR PAYER SUBSCRIBER SOURCE 02/28/2018 KALYAN E Primary KALYANNICO[place] [id number] Insurance:JOSE C ARTB: [facility] access hospitalAPPOhio[facility] Number: [id number], [place] [id number] Repository [address]Hmb: 330) Date:8870-34-76HC [phone] () 4619[address]CE [place] KAMARA [address]QX: 02/28/2018 Secondary NOT GIVENUNK [place] Insurance:SELF PAY [facility] Number: Effective Repository Date:2018-02-20 02/22/2018 KALYAN E Primary KALYAN E [place] [id number] Insurance:AETNA ANDERSONDOB: Community ANTONY RDAPPLE MCRPolicy Number: [id number] Midwood Community HospitalBR4NKZEffective Repository [address]Ena: (330) Date:7881-36-27GS [phone] () 522713WN [place] [address]MG: 02/22/2018 Secondary NOT GIVENUNK [place] Insurance:SELF PAY [facility] Number: Effective Repository Date:2018-02-21 02/21/2018 KALYAN E Primary K[place] E [place] [id number] Insurance:AETNA ANDERSONDOB: Community ANTONY RDAPPLE MCRPolicy Number: [id number], [place] [id number] Repository [address]Ypq: (330) Date:3553-81-05OU [phone] () 8801[address]UG [place] [address]AM: 02/21/2018 Secondary NOT GIVENUNK [place] Insurance:SELF PAY [facility] Number: Effective Repository Date:2018-02-21 02/20/2018 K[place]YAN Primary K[place] [id number] Insurance:AETNA ANDERSONDOB: Community ANTONY GARCIAAPPLE MCRPolicy Number: [id number], [place] [id number] Repository [address]Lfn: (330) Date:0820-49-14NS [phone] () [place] [address]KY: 02/20/2018 Secondary NOT GIVENUNK [place] Insurance:SELF PAY [facility] Number: Effective Repository Date:2018-02-14 01/03/2018 KALYAN Primary KALYAN [place] [id number] Insurance:AULTCAREPol ANDERSONDOB: Community ANTONY RDAPPLE icy Number: [id number], [place] [id number] Repository [address]Zsy: (330) Date:9485-32-69VI [phone] (HP) [address], [place] [address]UU: 01/03/2018 Secondary NOT GIVENUNK [place] Insurance:SELF PAY [facility] Number: Effective Repository Date:2018-01-01 04/25/2017 KALYAN E Primary KALYAN E [facility] CHELSEY JRDOB: Insurance:[facility] CHELSEY DOB: [facility] [id number] Number: [id number] Repository ANTONY GÓMEZ [id number] [address] [place] [address] Date:2017-04-25 - [facility], [address]Ykh: [phone]) [phone] [place] [address]Uih: [phone] Name:[facility] Box (HP)Tel: [phone], [place] (HP) (WP) [phone]: (WP) [phone] 04/25/2017 [place] Primary [place] [id number] [facility] Antony Gómez icy Number: [id number], [place] [id number] Repository [address]Dxj: 330) Date:7564-32-69JS [phone] () [place] [address]BP: 04/25/2017 Secondary NOT GIVENUNK [place] Insurance:SELF PAY [facility] Number: Effective Repository Date:2017-04-25
== END ==
PROVIDERS: Family Provider Family Medicine; PCP Family Medicine; Referring Provider Family Medicine; Visit Provider Family Medicine
DX: I10 Essential (primary) hypertension (principal)
CPT/HCPCS: 82384; 84585

== ENCOUNTER → 2018-02-28 10:05 | Outpatient (CLI) | payer MEDICARE, SELFPAY ==
[2018-02-20 13:35] VITALS: BMI 25.9
--- NOTE | 2018-02-28 10:10 | MRI_ITS ---
STUDY: MRI BRAIN WITH AND WITHOUT CONTRAST REASON FOR EXAM: Male, 63 years old. CHRONIS HEADACHES X 3 MONS. TECHNIQUE: Standardized multiplanar fat and water weighted pulse sequences were obtained. 9 ml of Gadavist contrast material was administered intravenously for the contrast portion of the examination. COMPARISON: None. FINDINGS: Normal size of the ventricles and extra-axial spaces for the patient's age. Normal white matter tracts of the supratentorial brain. Normal bilateral basal ganglia. Normal thalami. There is no extra-axial fluid accumulation. Normal flow voids within the major intracranial circulation suggesting patency by spin echo criteria. Normal venous enhancement. There is no enhancing intra-axial or extra-axial abnormality. Normal sella turcica, pituitary gland, infundibular stalk, optic chiasm and hypothalamus. Normal tectal plate and pineal gland. Normal midbrain, zane and medulla. Normal cerebellum. Normal basal cisterns. Normal bilateral temporal bones. Normal bilateral internal auditory canals. No demonstrated orbital abnormality, within the constraints of a routine brain study. There is mucoperiosteal inflammatory disease of the paranasal sinuses consistent with mild chronic sinusitis. MRI/Brain W/WO Contrast IMPRESSION: No acute intracranial abnormality or masses. Mild paranasal sinus disease. Electronically Signed: Shlomo Rose MD at 10:59 EST Tel , Service support ,
== END ==
PROVIDERS: Family Provider Family Medicine; PCP Family Medicine; Referring Provider Family Medicine; Visit Provider Family Medicine
DX: I10 Essential (primary) hypertension (principal)
CPT/HCPCS: 70553; A9585

== ENCOUNTER → 2018-07-12 10:09 | Outpatient (CLI) | payer MEDICARE, SELFPAY ==
[2018-07-12 09:43] VITALS: BMI 25.9
--- NOTE | 2018-07-12 10:13 | RAD_ITS ---
STUDY: X-RAY - CERVICAL SPINE REASON FOR EXAM: Male, 63 years old. Neck pain, right arm pain right shoulder pain TECHNIQUE: 3 view(s) of the cervical spine were obtained. COMPARISON: None FINDINGS: Normal anterior atlantoaxial articulation. Normal odontoid process. Normal cervical lordosis. Focal disc space narrowing and osteophyte formation at C5/C6 with 2 mm retrolisthesis of C5 on C6. Normal disc space heights. Normal visualized intervertebral neuroforamina. The soft tissue structures are unremarkable. RAD/Cerv Spine 2 or 3 Views IMPRESSION: Focal degenerative disc disease at C5-C6 with 2 mm retrolisthesis of C5 on C6. MRI would be useful. Electronically Signed: Navneet Barrow MD at 15:57 EDT Tel , Service support ,
== END ==
PROVIDERS: Family Provider Family Medicine; PCP Family Medicine; Referring Provider Nurse Practitioner Family; Visit Provider Nurse Practitioner Family
DX: M54.2 Cervicalgia (principal); G89.29 Other chronic pain
CPT/HCPCS: 72040

== ENCOUNTER → 2018-07-19 13:11 | Outpatient (CLI) | payer MEDICARE, SELFPAY ==
[2018-07-12 09:43] VITALS: BMI 25.9
--- NOTE | 2018-07-19 13:13 | CT_ITS ---
HISTORY: NECK PAIN RADIATING INTO SHOILDERS AND RIGHT ARM ADDITIONAL HISTORY: None provided COMPARISON: Cervical spine radiographs 07/12/2018 TECHNIQUE: Axial, coronal and sagittal noncontrast CT images of the cervical spine. A radiation dose optimization technique was used for this scan. Number of images including paperwork: 482 FINDINGS: BONES: No acute fracture. No suspicious bone lesion. VERTEBRAL ALIGNMENT: No traumatic subluxation. Loss of normal cervical lordosis. DISCS AND JOINTS: Moderate discogenic degenerative changes at C5-6 with disc space narrowing and osteophyte formation. Mild discogenic degenerative changes elsewhere. Facet arthropathy, most pronounced at C2-3 and C3-4 on the left.. SPINAL CANAL AND FORAMINA: No critical canal stenosis. Moderate to severe bony foraminal narrowing at C5-6 on the right. SOFT TISSUES: No prevertebral soft tissue swelling. No pathologic-appearing cervical adenopathy. LUNG APICES: Unremarkable. PARANASAL SINUSES: Unremarkable imaged portions if any. CT/Spine Cervical without Contras IMPRESSION: 1. No acute osseous abnormality. 2. Loss of normal cervical lordosis may be related to positioning or muscle spasm. 3. Cervical spondylosis. Individualized dose optimization techniques were used for this CT. at 0327 Reported and signed by: Tonie Moreno MD Electronically Signed: Tonie Moreno MD at 3:27 EDT Tel , Service support ,
== END ==
PROVIDERS: Family Provider Family Medicine; PCP Family Medicine; Referring Provider Family Medicine; Visit Provider Family Medicine
DX: M54.2 Cervicalgia (principal); G89.29 Other chronic pain
CPT/HCPCS: 72125

== ENCOUNTER 2018-12-11 15:29 | Emergency (ER) | payer MEDICARE, SELFPAY ==
[2018-07-12 09:43] VITALS: BMI 25.9
[2018-12-11 15:30] VITALS: BP 139/74; PULSE 107; RESP 15; TEMP 37; O2SAT 96; BMI 25.7
[2018-12-11 15:38] VITALS: BP 139/70; PULSE 107; RESP 15; TEMP 37; O2SAT 98
--- NOTE | 2018-12-11 15:39 | CT_ITS ---
STUDY: CT ABDOMEN AND PELVIS WITH CONTRAST REASON FOR EXAM: Male, 63 years old. Left lower quadrant pain and elevated white count. History of diverticulitis. RADIATION DOSAGE (If Supplied By Facility): CTDIvol = ( 11.76 ) mGy, DLP = ( 735.06 ) mGycm TECHNIQUE: Transaxial images were obtained from the dome of the diaphragm to the symphysis pubis without oral contrast. IV Isovue 300 100mL was administered. Sagittal and coronal images were reconstructed. Individualized dose optimization techniques were used for this CT. COMPARISON: None. FINDINGS: The visualized lung bases are unremarkable. The visualized portions of the heart are within normal limits. Normal liver. Normal gallbladder and extrahepatic biliary system. Normal spleen. Normal pancreas. Normal bilateral adrenal glands. Normal right kidney. Mild hydronephrosis of the left kidney secondary to a 9.7 x 6.8 mm stone in the proximal left ureter just below the ureteropelvic junction. There are after the ureter is nondistended with no additional ureteral stones. There is an additional 3 x 2 mm stone in the lower pole of the left kidney. Normal visualized stomach. The proximal small bowel is unremarkable. The distal small bowel including the terminal ileum appears to be slightly thickened. There is some generalized stranding of the mesentery in the right lower quadrant and shotty right mesenteric lymph nodes the largest of which is 13 mm long axis. A normal size appendix is identified. There is an diverticulosis without evidence of acute diverticulitis. There is a small amount of fluid in the retrovesicular space. There is diffuse atherosclerotic calcification of the abdominal aorta, without a demonstrated aneurysm. Normal inferior vena cava. Normal retroperitoneum. Nondistended urinary bladder. Elevation of the bladder base by prostate enlargement, particularly the median lobe. Small fatty left inguinal hernia. Minimal umbilical hernia. There are diffuse degenerative changes of the visualized lumbar spine. CT/Abdomen/Pelvis W IV Cont ONLY IMPRESSION: Mild hydronephrosis of the left kidney secondary to a 9.7 x 6.8 mm stone in the proximal left ureter just below the ureteropelvic junction. No additional ureteral stones. There is an additional 3.2 mm nonobstructing stone in the lower pole of the left kidney. Normal right kidney. Nondistended but slightly thickened appearing distal small bowel and terminal ileum. Generalized mild stranding in the right lower quadrant. Shoddy right mesenteric lymph nodes. Normal size of the appendix which does not appear to be the central focus of inflammation but is in the area of stranding. History of inflammatory bowel disease? Diverticulosis without evidence of acute diverticulitis. Small amount of free fluid in the retrovesicular space. Nondistended urinary bladder. Elevation of the bladder base by prostate enlargement particularly the median lobe. Unremarkable liver, spleen and pancreas with a nondistended gallbladder. Electronically Signed: Avani Horton MD at 17:08 EST , Service support ,
--- NOTE | 2018-12-11 15:40 | ED.VIS.GI ---
History of Present Illness Chief Complaint: Abd Pain Informant: Patient - Abdominal Pain/Flank Pain Onset: Hours - 10 Context: Gradual Onset Timing: Continuous, Waxes and wanes Quality: Aching Location: LLQ - radiates around to left flank/low back Current Severity: Severe Maximum Severity: Severe Worsened by: Nothing Relieved by: Nothing - Nausea/Vomiting/Emesis GI Symptom: Nausea. Negative for: Vomiting - Diarrhea/Melena/Hematochezia GI Symptom: Negative for: Diarrhea, Melena, Hematochezia Associated Symptoms: Negative for: Dysuria, Frequency, Hematuria, Urgency Narrative: Patient had pain that started late last night that feels similar to diverticulitis in his left lower quadrant but also wraps around his side to his back. Prior similar symptoms: Yes - 10 yrs ago w/ bout of uncomplicated diverticulitis - Past Medical History (1) Chronic neck pain Status: Chronic (2) Hypertension Status: Chronic Past Medical History - Allergies and Home Meds Allergies/Adverse Reactions: Allergies No Known Allergies Allergy (Verified 12/11/18 15:32) Primary Care Physician: Blaze Howard DO [Primary Care Provider] - Surgical History: - - no abdominal surgeries Lives: Spouse/ Significant Other Smoking Status: Never smoker Drugs: None Review of Systems General: Reports: Fever, Malaise, Sweats. Denies: Chills Eyes: Denies: Visual changes - bilaterally, Diplopia ENT: Denies: Rhinorrhea, Sore throat Cardiovascular: Denies: Chest pain, Palpitations Respiratory: Denies: Dyspnea, Cough, Dyspnea on exertion Gastrointestinal: Reports: Abdominal pain, Nausea. Denies: Vomiting, Diarrhea, Melena, Hematochezia Genitourinary: Denies: Dysuria, Hematuria, Frequency Musculoskeletal: Reports: Back pain. Denies: Swelling, Extremity Pain Skin: Denies: Rash, Wounds Neurological: Denies: Headache, Weakness, Numbness Physical Exam Vital Signs/Narrative: Vital Signs Temp Pulse Resp BP Pulse Ox 12/11/18 15:30 98.6 F 107 H 15 139/74 H 96 Inital Vital Signs reviewed: Yes General: Well nourished, Well developed, No Acute Distress Head: Normocephalic, Atraumatic Eyes: Perrl, EOMI ENT: Moist mucous membranes, No rhinorrhea Neck: Supple, Nontender Cardiovascular: Regular rate, Regular rhythm, No murmurs Respiratory: No distress, CTA bilaterally, Chest nontender Abdomen: Soft, Nondistended, Normal bowel sounds, Tender - LLQ>LUQ, Guarding - mild vol LLQ only. Negative for: Rebound tenderness Back: Nontender, Normal Inspection. Negative for: CVA tenderness Extremities: Nontender, No edema Skin: Normal color, No rash, No Trauma Neurological: Alert, Oriented x3, Cranial nerves II-XII grossly intact, Normal Strength, Normal Sensation, Normal Gait Psychological: Normal affect, Normal Mood Diagnostic/Tx/Re-eval Impressions Abdomen/Pelvis CT 12/11/18 15:39 IMPRESSION: Mild hydronephrosis of the left kidney secondary to a 9.7 x 6.8 mm stone in the proximal left ureter just below the ureteropelvic junction. No additional ureteral stones. There is an additional 3.2 mm nonobstructing stone in the lower pole of the left kidney. Normal right kidney. Nondistended but slightly thickened appearing distal small bowel and terminal ileum. Generalized mild stranding in the right lower quadrant. Shoddy right mesenteric lymph nodes. Normal size of the appendix which does not appear to be the central focus of inflammation but is in the area of stranding. History of inflammatory bowel disease? Diverticulosis without evidence of acute diverticulitis. Small amount of free fluid in the retrovesicular space. Nondistended urinary bladder. Elevation of the bladder base by prostate enlargement particularly the median lobe. Unremarkable liver, spleen and pancreas with a nondistended gallbladder. Electronically Signed: Avani Horton MD at 17:08 EST , Service support , 12/11/18 15:39 Abdomen/Pelvis W IV Cont ONLY [CT] Stat Laboratory Results 12/11/18 12/11/18 12/11/18 15:50 15:50 17:40 WBC 13.7 H RBC 5.15 Hgb 15.7 Hct 47.9 MCV 93.0 MCH 30.5 MCHC 32.8 RDW Std Deviation 44.5 H RDW Coeff of Raghu 13.1 Plt Count 302 MPV 9.4 Immature Gran % (Auto) 0.500 Neut % (Auto) 88.8 H Lymph % (Auto) 5.1 L Esmeralda % (Auto) 5.0 Eos % (Auto) 0.4 Baso % (Auto) 0.2 Absolute Neuts (auto) 12.2 H Absolute Lymphs (auto) 0.70 L Nucleated RBC % 0 Sodium 134 L Potassium 4.0 Chloride 102 Carbon Dioxide 25.0 Anion Gap 7 BUN 25 H Creatinine 1.41 H Estim Creat Clear Calc 53.93 Est GFR (MDRD) Af Amer 65 Est GFR (MDRD) Non-Af 54 L BUN/Creatinine Ratio 17.7 Glucose 106 Calcium 10.6 H Urine Color Yellow Urine Clarity Clear Urine pH 5.0 Ur Specific [place] 1.020 Urine Protein 30 H Urine Glucose (UA) Normal Urine Ketones 50 H Urine Occult Blood 250 H Urine Nitrite Negative Urine Bilirubin Negative Urine Urobilinogen Normal Ur Leukocyte Esterase 25 H Urine RBC 10-25 SEEN Urine WBC 0-5 SEEN Ur Squamous Epith Cells 0 SEEN Urine Bacteria RARE Urine Mucus 1+ - Medical Decision Making Patient's pain was very well controlled after single dose of morphine Toradol, and Zofran. He was given some IV fluids to help flush after having a contrasted CT scan, which showed no evidence of diverticulitis but a 9.7 X 6.3 mm stone at the left UVJ which is associated with hydronephrosis and likely causing his pain. There is an additional 2 X 3 mm stone in the left kidney that is nonobstructing. There was some nonspecific inflammatory changes on the right side, however patient has no pain or tenderness there and the etiology of this is nonspecific and of unknown etiology. He does not have a history of inflammatory bowel disease that we know of. His urine shows no acute infection/pyuria. His calcium is a little high, which I discussed with him. He will need follow-up and repeat at least. I discussed with Dr. christian who agrees to have him follow-up with symptom control and he will see him in the office. I discussed with the patient reasons to return to the ER. He is comfortable with this overall plan. ED Disposition - Plan for ED Patient: Disposition: Home or Assisted Living Diagnosis: Ureterolithiasis, Hypercalcemia, Renal colic on left side Instructions: KIDNEY STONE w/ Colic, Treating Kidney Stones: Percutaneous Lithotripsy Prescriptions: Oxycodone HCl/Acetaminophen [Percocet 5/325] 1 tab PO Q6H PRN PRN 3 Days #12 tab PRN Reason: Pain Prescription Printed Ondansetron [Zofran] 8 mg PO Q8H PRN PRN #12 tab PRN Reason: Nausea Prescription Printed Referrals: Blaze Howard DO [Primary Care Provider] - Elieser Christian MD [STAFF PHYSICIAN] - As soon as possible (Call for appointment)
[2018-12-11] MEDS: Ondansetron 4 MG/2 ML Vial IV (15:51)
[2018-12-11] MEDS: 0.9% Normal Saline 1,000 ML 1000 ML IV (15:52)
[2018-12-11] MEDS: Ketorolac 30 MG/ML Syringe 15 MG IV (15:52)
[2018-12-11] MEDS: Morphine 4 MG/ML Syringe IV (15:52)
[2018-12-11 16:11] LABS: Absolute Neutrophil Count 12.2 X10^3/uL (2.0-7.7); Basophil# 0.03 X10^3/uL; Basophil% 0.2 % (0-1); Eosinophil# 0.05 X10^3/uL; Eosinophils% 0.4 % (0-5); Hematocrit 47.9 % (40-54); Hemoglobin 15.7 g/dL (13.0-16.5); Lymphocyte % 5.1 % (19-41); Mean Corp Hgb Conc 32.8 g/dL (32-36); Mean Corpuscular Hgb 30.5 pg (27.0-32.0); Mean Platelet Vol. 9.4 fl (6.2-12.0); Monocyte# 0.69 X10^3/uL; NRBC Flagged by Analyzer 0 % (0-5); Neutrophil # 12.18 X10^3/uL (2.7-7.7); Neutrophil % 88.8 % (47-70); Platelet Count 302 K/mm3 (150-450); RBC Distribution Width CV 13.1 % (11.6-14.6); RBC Distribution Width SD 44.5 fl (35.1-43.9); Red Blood Count 5.15 M/mm3 (4.6-6.2); White Blood Count 13.7 K/mm3 (4.4-11.0)
[2018-12-11 16:25] LABS: Anion Gap 7 (5-15); BUN 25 mg/dL (7-18); BUN/Creat Ratio 17.7 RATIO (10-20); Calcium,Total 10.6 mg/dL (8.5-10.1); Chloride 102 mmol/L (98-107); Creatinine, Serum 1.41 mg/dL (0.70-1.30); EST Glomerular Filtration Rate 54 mL/min (>60); Est Glom Filt Rate - Afr Amer 65 mL/min (>60); Estimated Creatinine Clearance 53.93 ml/min; Glucose 106 mg/dL (74-106); Sodium Level 134 mmol/L (136-145)
[2018-12-11 17:44] VITALS: BP 91/72; PULSE 98; RESP 17; TEMP 37.3; O2SAT 98
[2018-12-11 17:47] LABS: Squamous Epithelial Cells - UA 0 SEEN /hpf (0-5)
[2018-12-11 17:48] LABS: Color, Urine Yellow (Yellow); Glucose, Dipstick Normal (Normal); Ketone-Dipstick 50 mg/dl (Negative); Leukocyte Esterase-Dipstick 25 /ul (Negative); Nitrite-Dipstick Negative (Negative); Occult Blood-Urine 250 /ul (Negative); Protein-Dipstick 30 mg/dl (Negative); Urine Bilirubin Dipstick Negative (Negative); Urine Clarity Clear (Clear); Urine Urobilinogen Normal (Normal)
--- NOTE | 2018-12-11 17:55 | ED.RN ---
VERBAL ORDER FROM DR. JEREZ TO D/C SEPSIS SCREENING.
[2018-12-11 18:18] LABS: Bacteria RARE /hpf (None Seen); Mucous, Urine 1+ /hpf (<or=2+); Red Blood Cells-Urine 10-25 SEEN /hpf (0-5); White Blood Cells 0-5 SEEN /hpf (0-5)
[2018-12-11 18:48] VITALS: BP 114/75; PULSE 96; RESP 17; O2SAT 98
--- NOTE | 2018-12-11 18:48 | ED.RN ---
PT GIVEN WRITTEN AND VERBAL DISCHARGE INSTRUCTIONS. PT EDUCATED NOT TO DRIVE AFTER HAVING MORPHINE FOR 6 HOURS. PT VERBALIZES UNDERSTANDING AND DENIES ANY FURTHER QUESTIONS. IV D/C AND COVERED WITH 2X2 GAUZE AND PAPER TAPE. PT CALLING FOR A RIDE HOME.
== END 2018-12-11 18:53 | disposition home or self-care (01) ==
PROVIDERS: Emergency Provider Emergency Medicine; Family Provider Family Medicine; PCP Family Medicine
DX: N13.2 Hydronephrosis with renal and ureteral calculous obstruction (principal); E83.52 Hypercalcemia; I10 Essential (primary) hypertension; N40.0 Benign prostatic hyperplasia without lower urinary tract symptoms; M54.2 Cervicalgia; G89.29 Other chronic pain
CPT/HCPCS: 74177; 80048; 81001; 85025; 96361; 96374; 96375; 99283; J7030; Q9967; A4216; J2405

== ENCOUNTER 2018-12-13 12:50 | Day surgery (SDC) | payer MEDICARE, SELFPAY ==
--- NOTE | 2018-12-13 13:05 | RAD_ITS ---
STUDY: X-RAY - ABDOMEN/PELVIS REASON FOR EXAM: Male, 63 years old. Abdominal pain. Kidney stones on the left. TECHNIQUE: 1 view COMPARISON: Prior abdomen and pelvic CT exam of December 11, 2018 FINDINGS: Normal visualized lung bases. There is an unremarkable bowel gas pattern. There is no demonstrated free abdominal air. There is a 9 x 6 mm calcification consistent with a stone identified on CT exam within the left ureter that is located near the left transverse process of L2 in a similar location. There is an additional small nonobstructing stone in the lower pole of the left kidney. No additional ureteral or bladder stones. Normal soft tissue structures. Normal visualized osseous structures. RAD/Abdomen Single View IMPRESSION: 9 x 6 mm left ureteral stone is unchanged in position from prior CT exam at about the level of the L2-3 disc space. One additional small nonobstructing stone in the lower pole of the left kidney. No additional acute abdominal or pelvic findings. Electronically Signed: Avani Horton MD at 17:17 EST , Service support ,
[2018-12-13 13:43] VITALS: BP 123/78; PULSE 102; RESP 16; TEMP 36.7; O2SAT 100; BMI 26.8
[2018-12-13] MEDS: Lactated Ringers 1,000 ML 100 ML IV (13:52)
--- NOTE | 2018-12-13 16:11 | PCM.DC ---
- Discharge Diagnoses Current Active Problems: left kidney stone Reason(s) for Visit for Discharge Instructions: s/p left shockwave lithotripsy You will use the following diet at home:: Regular Your food should be the consistency of: Regular Discharge Activity: Return to Normal Activity Return to work on:: 12/16/18June shower in (days): 1 Call your doctor if you observe: Fever of 101 or Higher Allergies/Adverse Reactions: Allergies No Known Allergies Allergy (Verified 12/11/18 15:32) Medications to take at Discharge valsartan 320 mg-hydrochlorothiazide 12.5 mg tablet 1 tab PO DAILY #90 tab 09/26/18 Ondansetron [Zofran] 8 mg PO Q8H PRN PRN #12 tab 12/11/18 Oxycodone HCl/Acetaminophen [Percocet 5/325] 1 tab PO Q6H PRN PRN 3 Days #12 tab 12/11/18 Primary Care Physician: Blaze Howard DO [Primary Care Provider] - Test Results: Test results from this visit will be discussed in further detail at your follow-up appointment, if applicable. Please Follow Up With: Kim De La Torre - Dr Christian's [employer]PUTY [employer]ERK [employer] When: call for an appt next week with an xray to d/c stent
--- NOTE | 2018-12-13 17:09 | PCM.OPRPT ---
Report of Operation Date of Procedure: 12/13/18 Pre-Operative Diagnosis: Left proximal ureteral calculi Post-Operative Diagnosis: The same Surgery/Procedure Performed:: Cystoscopy, left stent placement, left extracorporal shockwave lithotripsy 4000 shockwaves Description of Surgical Findings:: 63-year-old male taken back to the operating room at the smooth induction of anesthesia is placed upon the table, we strangulation identified the stone in the proximal left ureter under fluoroscopy we then proceeded with shockwave lithotripsy a total of 2000 shockwaves was given to the stone at a rate of 90 power 8 kV. The stone is certainly broken into fragments along the course of the ureter but still was present so this point we decided to place a stent, went into the bladder with a 21 Czech rigid cystourethroscope the entire length of the urethra is normal no scar tissues were abnormality sphincter was intact, verumontanum was normal, prostate was slightly enlarged with a slight median lobe, identified the left ureteral orifice cannulated this with a wire and a Pollack catheter I then advanced a stent over the wire the stent went past the stone up in the kidney pulled the wire stent: The kidney bladder good position at the string of the stent for easy extraction. We then position the table again and found the stone fragment still in the proximal ureter and another 2000 shockwaves delivered to the stone at a rate of 120 kv7. At the end of the treatment cycle. Like the stone is broken up successfully we will see him back next week with an x-ray and probably remove the stent. Type of Anesthesia:: General Drains: stent left side - Admit VTE Documentation VTE Present on Admission: No VTE Mechan Device Prophylaxis: SCD's
[2018-12-13 17:22] VITALS: BP 123/78; BP 144/55; PULSE 105; RESP 16; TEMP 36.7; O2SAT 98
[2018-12-13 17:30] VITALS: BP 123/78; BP 97/56; PULSE 98; RESP 16; O2SAT 98
[2018-12-13 17:45] VITALS: BP 103/72; BP 123/78; PULSE 95; RESP 16; TEMP 36.9; O2SAT 97
[2018-12-13 18:16] VITALS: BP 116/84; BP 123/78; PULSE 94; RESP 16; TEMP 36.5; O2SAT 99
--- NOTE | 2018-12-17 16:55 | HP.PCM_ITS ---
History and Physical Date of Admission: 12/11/18 I have kidney stones. HPI: CIARAN BARBOSA is a 63 year-old male established patient who is here for renal calculi. The problem is on the left side. He first noticed the symptoms 1 day ago. Pain is occuring on the left side. The intensity of his pain is rated as a 10. This is his first kidney stone. He is currently having flank pain and back pain. He denies having groin pain, nausea, vomiting, fever, and chills. He has not caught a stone in his urine strainer since his symptoms began. He has had eswl for treatment of his stones in the past. Solitary stone. The stone is obstructing The kidney.. The stone is in the upj of the kidney. Left side flank. ALLERGIES: None MEDICATIONS: Acetaminophen Valsartan-Hydrochlorothiazide Notes: Has not had pneumonia vaccine PSH: Cystoscopy - 2016 Prostate Needle Biopsy - 2016 NON- PSH: Back Surgery (Unspecified) - 1993 Colonoscopy Eye Surgery (Unspecified) Knee Surgery (Unspecified) - 2011 Patient not documented to have received pneumococcal vaccination PMH: Asymptomatic microscopic hematuria - 2016 Elevated prostate specific antigen [PSA] - 2016 Nocturia NON- PMH: Essential (primary) hypertension Migraine, unsp, not intractable, without status migrainosus Immunizations: None FAMILY HISTORY: High Blood Pressure - Brother, Father SOCIAL HISTORY: Marital Status: Preferred Language: Citizen Of [place]; Ethnicity: Not Or ; Race: White Current Smoking Status: Patient has never smoked. Smoking cessation counseling was provided. Does not use smokeless tobacco. Social Drinker. Does not use drugs. Drinks 2 caffeinated drinks per day. Has not had a blood transfusion. REVIEW OF SYSTEMS: Constitutional: Patient denies fever, chills, weight loss, and weight gain. Eyes: Patient reports cataracts. Patient denies blurry vision and glaucoma. Ears, Nose, Mouth, Throat: Patient denies hearing loss, sinus infections, and sleep apnea. Cardiovascular: Patient denies chest pains, swollen ankles, irregular heartbeat, and pacemaker/defib. Respiratory: Patient denies shortness of breath, wheezing, oxygen, and cpap machine. Gastrointestinal: Patient denies abdominal pain, diarrhea, constipation, nausea, and vomiting. Genitourinary: Patient reports get up at night to void. Patient denies frequent urination, urinary retention, leakage of urine, painful urination, blood in the urine, frequent uti's, history of stones, difficulty starting stream, weak stream/scanty, and bedwetting. Musculoskeletal: Patient denies sore muscles, back pain, and gout. Integumentary/Skin: Patient denies rash, skin cancer, and chronic itching. Neurological: Patient denies stroke/tia, paralysis, and falling/unsteady. Hematologic/Lymphatic: Patient denies abnormal bleeding, blood transfusion, swollen lymph nodes, deep venous thrombosis, and pulmonary embolism. VITAL SIGNS: 12/12/2018 01:26 PM Weight 179 lb / 81.19 kg Height 70 in / 177.8 cm BP 120/60 mmHg BMI 25.7 kg/m? - BMI Counseling was provided. PHYSICAL EXAMINATION: Anus and Perineum: No hemorrhoids. No anal stenosis. No rectal fissure, no anal fissure. No edema, no dimple, no perineal tenderness, no anal tenderness. Scrotum: No lesions. No edema. No cysts. No warts. Epididymides: Right: no spermatocele, no masses, no cysts, no tenderness, no induration, no enlargement. Left: no spermatocele, no masses, no cysts, no tenderness, no induration, no enlargement. Testes: No tenderness, no swelling, no enlargement left testes. No tenderness, no swelling, no enlargement right testes. Normal location left testes. Normal location right testes. No mass, no cyst, no varicocele, no hydrocele left testes. No mass, no cyst, no varicocele, no hydrocele right testes. Urethral Meatus: Normal size. No lesion, no wart, no discharge, no polyp. Normal location. Penis: Circumcised, no warts, no cracks. No dorsal Peyronie's plaques, no left corporal Peyronie's plaques, no right corporal Peyronie's plaques, no scarring, no warts. No balanitis, no meatal stenosis. Prostate: 40 gram or 2+ size. Left lobe normal consistency, right lobe normal consistency. Symmetrical lobes. No prostate nodule. Left lobe no tenderness, right lobe no tenderness. Seminal Vesicles: Nonpalpable. Sphincter Tone: Normal sphincter. No rectal tenderness. No rectal mass. MULTI-SYSTEM PHYSICAL EXAMINATION: Constitutional: Well-nourished. No physical deformities. Normally developed. Good grooming. Neck: Neck symmetrical, not swollen. Normal tracheal position. Respiratory: No labored breathing, no use of accessory muscles. Cardiovascular: Normal temperature, normal extremity pulses, no swelling, no varicosities. Lymphatic: No enlargement of neck, axillae, groin. Skin: No paleness, no jaundice, no cyanosis. No lesion, no ulcer, no rash. Neurologic / Psychiatric: Oriented to time, oriented to place, oriented to person. No depression, no anxiety, no agitation. Gastrointestinal: No mass, no tenderness, no rigidity, non obese abdomen. Eyes: Normal conjunctivae. Normal eyelids. Ears, Nose, Mouth, and Throat: Left ear no scars, no lesions, no masses. Right ear no scars, no lesions, no masses. Nose no scars, no lesions, no masses. Normal hearing. Normal lips. Musculoskeletal: Normal gait and station of head and neck. PAST DATA REVIEWED: Source Of History: Patient Records Review: Previous Patient Records Urine Test Review: Urinalysis 04/06/16 06/07/15 03/21/14 PSA Total PSA 6.5 mg/dl 4.53 mg/dl 4.29 mg/dl PROCEDURES: Urinalysis - [address]0930 Dipstick Dipstick Cont'd Specimen: Voided Blood: about 250 Appearance: Clear pH: 5.0 Color: Yellow Protein: 1+ Glucose: Normal Urobilinogen: Neg Bilirubin: Neg Nitrites: Neg Ketones: Neg Leukocyte Esterase: Neg Specific Randolph: 1.020 ASSESSMENT: ICD-10 Details 1 : Calculus of kidney - N20.0 PLAN: Document Letter(s): Created for Patient: Clinical Summary Notes: plan for left ESWL and stent add on for tomorrow. possible stent.
== END 2018-12-13 18:18 | disposition home or self-care (01) ==
LOC: SDC 12:52 → AC 13:10
PROVIDERS: Family Provider Family Medicine; PCP Family Medicine; Referring Provider Urology; Visit Provider Urology
PROC: (CPT 50590; principal; 2018-12-13 14:55)
DX: N20.2 Calculus of kidney with calculus of ureter (principal)
CPT/HCPCS: 00873; 50590; 52332; 74018; J7120; C1769; C2617; J2405

== ENCOUNTER → 2018-12-17 14:19 | Outpatient (CLI) | payer MEDICARE, SELFPAY ==
[2018-12-13 13:43] VITALS: BMI 26.8
--- NOTE | 2018-12-17 14:21 | RAD_ITS ---
STUDY: X-RAY - ABDOMEN/PELVIS REASON FOR EXAM: Male, 63 years old. Pain after stent placement TECHNIQUE: 3 AP views COMPARISON: 02/12/2018 FINDINGS: Normal visualized lung bases. Stable appearance of the left-sided JJ stent. Previously noted calcification near the left transverse process of L2 is not seen on today's study suggesting it has likely passed There is an unremarkable bowel gas pattern. There is no demonstrated free abdominal air. The visualized liver, spleen and kidneys are grossly normal in size and morphology. Normal soft tissue structures. Normal visualized osseous structures. RAD/Abdomen Single View IMPRESSION: No acute findings, previously described 1 cm calcification adjacent to the left transverse processes at L2 no longer identified and has likely passed. Stable appearance of a left-sided JJ stent Electronically Signed: Chandan Rooney MD at 15:49 EST , Service support ,
== END ==
PROVIDERS: Family Provider Family Medicine; PCP Family Medicine; Referring Provider Nurse Practitioner Adult Health; Visit Provider Nurse Practitioner Adult Health
DX: N20.0 Calculus of kidney (principal)
CPT/HCPCS: 74018

== ENCOUNTER → 2019-05-13 11:53 | Outpatient (CLI) | payer MEDICARE, SELFPAY ==
[2019-05-13 09:44] VITALS: BMI 26.8
[2019-05-13 12:32] LABS: AST(SGOT) 18 U/L (15-37); Alanine Aminotransfer ALT/SGPT 24 U/L (16-61); Albumin, Serum 3.9 g/dL (3.2-5.0); Alkaline Phosphatase 115 U/L (45-117); Anion Gap 4 (5-15); BUN 14 mg/dL (7-18); Calcium,Total 10.6 mg/dL (8.5-10.1); Chloride 105 mmol/L (98-107); Creatinine, Serum 1.08 mg/dL (0.70-1.30); EST Glomerular Filtration Rate 73 mL/min (>60); Est Glom Filt Rate - Afr Amer 88 mL/min (>60); Globulin 3.8 g/dL (2.2-4.2); Glucose 71 mg/dL (74-106); Potassium 3.9 mmol/L (3.5-5.1); Protein, Total 7.7 g/dL (6.4-8.2); Sodium Level 138 mmol/L (136-145)
== END ==
PROVIDERS: PCP Family Medicine; Referring Provider Family Medicine; Visit Provider Family Medicine
DX: E83.52 Hypercalcemia (principal)
CPT/HCPCS: 80053

== ENCOUNTER → 2019-08-01 12:03 | Outpatient (CLI) | payer MEDICARE, SELFPAY ==
[2019-05-13 09:44] VITALS: BMI 26.8
[2019-08-01 15:16] LABS: PTHIN 130.9 pg/mL (18.4-80.1)
== END ==
PROVIDERS: PCP Family Medicine; Referring Provider Family Medicine; Visit Provider Family Medicine
DX: E83.52 Hypercalcemia (principal)
CPT/HCPCS: 36415; 83970

== ENCOUNTER → 2019-08-06 08:02 | Outpatient (CLI) | payer MEDICARE, SELFPAY ==
[2019-05-13 09:44] VITALS: BMI 26.8
[2019-08-06 12:55] LABS: Vitamin D,25 Hydroxy 36.7 ng/mL
== END ==
PROVIDERS: PCP Family Medicine; Referring Provider Family Medicine; Visit Provider Family Medicine
DX: E34.9 Endocrine disorder, unspecified (principal); E83.52 Hypercalcemia
CPT/HCPCS: 36415; 82306

== ENCOUNTER → 2019-08-15 09:20 | Outpatient (CLI) | payer MEDICARE, SELFPAY ==
[2019-05-13 09:44] VITALS: BMI 26.8
--- NOTE | 2019-08-15 09:21 | NM_ITS ---
CLINICAL: 64-year-old male with reported history of hypercalcemia. 99m Tc SESTAMIBI DUAL PHASE PARATHYROID SCINTIGRAPHY COMPARISON: None available FINDINGS: Following the intravenous administration of 25.9 mCi of 99m Tc sestamibi, image acquisitions of the anterior neck at approximately 20 minutes and 2.0 hours post radiopharmaceutical provision reveal: 1. Immediate static blood pool acquisitions demonstrate distribution of the radiopharmaceutical in the right-left thyroid colloid. Uptake appears most accentuated in the midinferior pole of the right lobe thyroid parenchyma. 2. Delayed images depict persistent tracer distribution noted in the mid-inferior pole of the right thyroid bed with near complete washout of the radiotracer identified in the remaining previously described thyroid colloid. NM/Parathyroid Scan IMPRESSION: 1. ABNORMAL 99m Tc SESTAMIBI PARATHYROID IMAGING DUAL PHASE EXAMINATION. 2. There is scintigraphic evidence of an apparent parathyroid adenoma involving the midinferior pole of the right thyroid bed. Electronically Signed: Navneet Jorgensen DO at 20:38 EDT Tel , Service support ,
== END ==
PROVIDERS: PCP Family Medicine; Referring Provider Internal Medicine Endocrinology, Diabetes & Metabolism; Visit Provider Internal Medicine Endocrinology, Diabetes & Metabolism
DX: E21.0 Primary hyperparathyroidism (principal)
CPT/HCPCS: 78070; A9500

== ENCOUNTER → 2019-09-02 08:00 | Outpatient (CLI) | payer MEDICARE, SELFPAY ==
[2019-08-20 14:30] VITALS: BMI 26.8
[2019-08-28 09:58] VITALS: BMI 25.8
--- NOTE | 2019-09-02 08:02 | CT_ITS ---
STUDY: CT ABDOMEN AND PELVIS WITHOUT CONTRAST REASON FOR EXAM: Male, 64 years old. KS, RT SIDE RADIATION DOSAGE (If Supplied By Facility): CTDIvol = ( 7.14 ) mGy, DLP = ( 367.70 ) mGycm TECHNIQUE: Transaxial images were obtained from the dome of the diaphragm to the symphysis pubis without oral contrast, and without intravenous contrast. Sagittal and coronal images were reconstructed. Individualized dose optimization techniques were used for this CT. COMPARISON: Comparison is made with prior study dated 12-11-18. FINDINGS: Small calcified granuloma in the right middle lobe. The visualized portions of the heart are within normal limits. Normal liver. Normal gallbladder and extrahepatic biliary system. Normal spleen. Focal punctate calcification in the region of the tail of the pancreas. This is unchanged. Normal bilateral adrenal glands. Normal right kidney. Normal left kidney. Normal visualized stomach. Normal small intestine. There are scattered colonic diverticula consistent with diverticulosis. The appendix is visualized and appears normal. There is scattered atherosclerotic calcification of the abdominal aorta, without a demonstrated aneurysm. Normal inferior vena cava. There is borderline retroperitoneal lymphadenopathy with enlarged nodes no greater than 10mm in the short axis diameter. Normal urinary bladder. There is enlargement of the prostate gland. Central prostatic calcification. It measures 5.6 cm by 4.6 cm. This causes indentation of the bladder base. There is a small umbilical hernia containing fat. Small left inguinal hernia containing fat. There are degenerative changes of the visualized lumbar spine. CT/Abdomen/Pelvis without Cont IMPRESSION: Prostatic enlargement with indentation at the bladder base. No abnormal renal calcification is seen at this time. Electronically Signed: Antwan Hernandez, at 8:30 EDT , Service support ,
--- NOTE | 2019-09-02 08:02 | US_ITS ---
STUDY: SUPERFICIAL ULTRASOUND - NECK REASON FOR EXAM: Male, 64 years old. CALCULUS/ADENOMA TECHNIQUE: A superficial ultrasound was performed with real-time and static lima-scale imaging. COMPARISON: None. FINDINGS: There is a 1.7 cm x 1.3 cm x 0.5 cm benign appearing lymph node in zone 3. There is also evidence of a 7 mm x 4 mm a 4 mm well-defined lymph node inferior to the right lobe of the thyroid. There is a 1.7 cm x 1.4 cm x 0.5 cm lymph node at the level of the zone 2. There is a 9 mm x 10 mm x 3 mm solid isoechoic nodule in the inferior aspect of the parotid gland. There is an 8 mm x 7 mm x 5 mm hypoechoic solid nodule in the inferior aspect of the right lobe of the thyroid. US/Head/Neck Soft Tissue IMPRESSION: Multiple findings as described. Electronically Signed: Antwan Hernandez, at 12:38 EDT , Service support ,
== END ==
PROVIDERS: PCP Family Medicine; Referring Provider Surgery; Visit Provider Surgery
DX: D35.1 Benign neoplasm of parathyroid gland (principal); N20.1 Calculus of ureter
CPT/HCPCS: 74176; 76536

== ENCOUNTER → 2021-01-25 10:04 | Outpatient (CLI) | payer MEDICARE, SELFPAY ==
[2021-01-25 12:42] LABS: PTHIN 37.6 pg/mL (18.4-80.1)
[2021-01-25 12:51] LABS: ALB/GLOB Ratio 0.9 RATIO (0.9-2.4); AST(SGOT) 19 U/L (15-37); Alanine Aminotransfer ALT/SGPT 29 U/L (16-61); Albumin, Serum 3.5 g/dL (3.2-5.0); Alkaline Phosphatase 88 U/L (45-117); Anion Gap 5 (5-15); BUN 18 mg/dL (7-18); BUN/Creat Ratio 15.9 RATIO (10-20); Calcium,Total 9.2 mg/dL (8.5-10.1); Chloride 105 mmol/L (98-107); Creatinine, Serum 1.13 mg/dL (0.70-1.30); EST Glomerular Filtration Rate 69 mL/min (>60); Est Glom Filt Rate - Afr Amer 83 mL/min (>60); Globulin 3.8 g/dL (2.2-4.2); Glucose 88 mg/dL (74-106); Potassium 4.3 mmol/L (3.5-5.1); Protein, Total 7.3 g/dL (6.4-8.2); Sodium Level 138 mmol/L (136-145); Thyroid Stim Hormone (TSH) 3.05 uIU/mL (0.358-3.74)
== END ==
PROVIDERS: PCP Family Medicine; Referring Provider Family Medicine; Visit Provider Family Medicine
DX: I10 Essential (primary) hypertension (principal); E21.3 Hyperparathyroidism, unspecified
CPT/HCPCS: 36415; 80053; 83970; 84443

== ENCOUNTER → 2022-01-03 | Outpatient (CLI) | payer MEDICARE, SELFPAY ==
[2022-01-03 16:47] LABS: Erythrocyte Sedimentation Rate 14 mm/hr (0-20)
[2022-01-03 17:12] LABS: AST(SGOT) 24 U/L (15-37); Alanine Aminotransfer ALT/SGPT 26 U/L (16-61); Albumin, Serum 3.5 g/dL (3.2-5.0); Alkaline Phosphatase 83 U/L (45-117); Anion Gap 9 (5-15); BUN 19 mg/dL (7-18); BUN/Creat Ratio 16.1 RATIO (10-20); Calcium,Total 8.8 mg/dL (8.5-10.1); Chloride 105 mmol/L (98-107); Cholesterol 206 mg/dL (200); Creatinine, Serum 1.18 mg/dL (0.70-1.30); EST Glomerular Filtration Rate 65 mL/min (>60); Est Glom Filt Rate - Afr Amer 79 mL/min (>60); Globulin 3.5 g/dL (2.2-4.2); Glucose 92 mg/dL (74-106); High Density Lipoprotein 52 mg/dL; Potassium 3.6 mmol/L (3.5-5.1); Sodium Level 140 mmol/L (136-145); Triglycerides 158 mg/dL; Very Low Density Lipoprotein 32 mg/dL (5-40)
== END | disposition home or self-care (01) ==
LOC: BIMLAB 14:39
PROVIDERS: PCP Family Medicine; Referring Provider Family Medicine; Visit Provider Family Medicine
DX: K21.00 Gastro-esophageal reflux disease with esophagitis, without bleeding (principal); R35.1 Nocturia; I10 Essential (primary) hypertension
CPT/HCPCS: 36415; 80053; 80061; 84153; 85652

== ENCOUNTER 2022-05-01 10:07 | Day surgery (SDC) | payer MEDICARE, SELFPAY ==
[2022-05-01] VITALS (7 sets, daily range): BP systolic 80–128; BP diastolic 64–83; PULSE 68–83; RESP 16; TEMP 36.5–36.8; O2SAT 94–98; BMI 27.0
[2022-05-01] MEDS: Lactated Ringers 1,000 ML 15 ML IV (10:45)
--- NOTE | 2022-05-01 11:02 | HP.PCM_ITS ---
History and Physical Date of Admission: 05/01/22 67 M who presents to the office today to establish with GI for heartburn. Has been mild x yrs, more acid refluxing in recent months. Takes OTC famotidine prn with good relief, needs it every couple of days. No dysphagia. Lots of burping. Can have bloating. No nausea or vomiting. No abd pain. Bowels are regular, no diarrhea or constipation, no melena or hematochezia. Brother needs daily med for GERD. Colonoscopy [address] Singh, no polyps ROS Const Constitutional: No fatigue ENT ENT: No difficulty swallowing Gastro GI: Positive for heartburn; No abdominal pain, belching, bloating, change in bowel habits, change in stool character, coffee ground emesis, constipation, cramping, diarrhea, difficulty swallowing, feeling full early, excessive flatus, incontinent of stools, Vomiting blood/hematemesis, Blood in stool, loose stools, Black,tarry stools, nausea/dyspepsia, pain with swallowing, vomiting or other Musc Musculoskeletal: Positive for back pain; No joint pain Skin Skin: No yellowing of the eye or itchy eyes Psych Psychiatric: No anxiety and No depression Endo Endocrine: No fatigue Aller/Imm Allergy/Immunologic: No itchy eyes Darrian/Lymp Hematologic/Lymphatic: No easy bleeding or easy bruising Exam Const General: cooperative, healthy appearing and comfortable Orientation: alert, awake and oriented x3 Quality Reporting Tobacco Screening ([facility] 138) Smoking Status: Never smoker Assessment and Plan Assessment and Plan (1) Acid reflux: ?Status:?Chronic ?Plan: Discussed causes of acid reflux, recommend EGD to eval for esophagitis, Byrnes's. Rx pantoprazole 40 mg qam. ? ? ? Medications: New pantoprazole 40 mg? PO QAM 90 tabs 3RF ? ? I have examined the patient and the H&P has been reviewed. There are no clinical changes since date of exam.
--- NOTE | 2022-05-01 11:15 | IMM_PTH ---
PATIENT: CIARAN BARBOSA Jr. LOC: EN U#:[id number] AGE/SX: 67/M ROOM: RE05/01/[address]: Dr. Sage Doshi DO : 1955 BED: DIS: 05/01/2022 SPEC #: [id number] RECD: 05/01/22 12:41 STATUS: SOUFrancia REQ #: [id number] ROGER: 05/01/22 11:[address]: Sage Doshi DEPT: IMMUNOHISTOCHEMISTRY RECD BY: Melissa Terrazas ENTERED: 05/01/22 12:41 SP TYPE: IMMUNO OTHR DR: Dr. Blaze Howard, DO Tissues: B - Stomach, NOS Procedures: H Pylori (initial) PHYSICIAN & [place] [id number] SPECIMEN INFORMATION: Tissue Source: B - Gastric antrum Clinical Info: Abdominal pain Specimen Number: [id number] CPT code: 44753 METHODOLOGY: Deparaffinized sections of prefer/formalin-fixed tissue or PAP/DQ stained slides are incubated with monoclonal/polyclonal antibodies/oligonucleotide probes. Localization is made via biotin free immunoperoxidase method. Appropriate controls are performed and reacted as expected. Results on target cell population are indicated in the following table: RESULTS: ANTIBODY / CLONE RESULT Block B H Pylori (polyclonal) negative These tests were developed and their performance characteristics determined by [facility]. They may not have been cleared or approved by the U.S. Food and Drug Administration. The FDA has determined that such clearance or approval is not necessary. The above immunohistochemical/dualISH markers are ordered and reviewed by the Pathologist. INTERPRETATION: B. Gastric antrum, biopsy: Negative for Helicobacter pylori organisms. AM:dana 05/02/2022
--- NOTE | 2022-05-01 11:15 | EGD_PTH ---
PATIENT: CIARAN BARBOSA Jr. LOC: EN U#:[id number] AGE/SX: 67/M ROOM: RE05/01/[address]: Dr. Sage Doshi DO : 1955 BED: DIS: 05/01/2022 SPEC #: [id number] RECD: 05/01/22 11:34 STATUS: TRAY GANDHI #: [id number] ROGER: 05/01/22 11:[address]: Sage Doshi DEPT: SURGICAL PATHOLOGY RECD BY: Elias Woody ENTERED: 05/01/22 12:07 SP TYPE: EGD BIOPSY GREG DR: Dr. Blaze Howard DO Tissues: A - Duodenum, NOS B - Gastric mucous membrane C - Esophagus, NOS Procedures: Special Stain Group II Surgery Specimen Level IV Alcian Blue/PAS (control) HEADER OPERATION: EGD ([facility]), biopsy PRE-OP DIAGNOSIS: Acid reflux TISSUE SUBMITTED: A ? Duodenum biopsy, B ? Gastric antrum biopsy, C ? Distal esophagus biopsy MICROSCOPIC DIAGNOSIS A. Duodenum, biopsy: No pathologic change. B. Gastric antrum, biopsy: Chronic gastritis. See comment. C. Distal esophagus, biopsy: Gastroesophageal junctional mucosa with chronic inflammation. No evidence of goblet cell metaplasia. See comment. AM:dana 05/02/2022 COMMENT B. The results of immunohistochemistry for Helicobacter pylori will be reported separately ([id number]). C. Alcian blue/PAS stain with matched control supports the above diagnosis. MICROSCOPIC DESCRIPTION Slides are reviewed. GROSS DESCRIPTION A - Received in fixative is one container labeled with the patient's name and designated duodenum biopsy. The specimen consists of two irregular fragments of light garcia soft tissue that in aggregate measure 0.8 x 0.4 x 0.1 cm. The specimen is totally submitted in one cassette. B - Received in fixative is one container labeled with the patient's name and designated gastric antrum biopsy. The specimen consists of two irregular fragments of light garcia soft tissue that in aggregate measure 0.4 x 0.2 x 0.1 cm. The specimen is totally submitted in one cassette. C - Received in fixative is one container labeled with the patient's name and designated distal esophagus biopsy. The specimen consists of multiple irregular fragments of light garcia soft tissue that in aggregate measure 1.5 x 0.5 x 0.1 cm. The specimen is totally submitted in one cassette. / SJ:rg 05/01/2022 TC:3 CPT: 06382 x3, 20175
--- NOTE | 2022-05-01 11:25 | OP.EGD_ITS ---
Patient Name: Kalyan Sanchez Procedure Date: 05/01/2022 11:02 AM Date of : 1955 Age: 67 Procedure: Upper GI endoscopy Indications: Functional Dyspepsia, Heartburn Providers: Sage Doshi DO Referring MD: Sage Doshi DO Medicines: Monitored Anesthesia Care Patient Profile: This is a 67 year old male. Refer to note in patient chart for documentation of history and physical. Patient has symptoms of acute abdominal distention and acute heartburn. Complications: No immediate complications. Procedure: Pre-Anesthesia Assessment: - Prior to the procedure, a History and Physical was performed, and patient medications and allergies were reviewed. The risks and benefits of the procedure and the sedation options and risks were discussed with the patient. All questions were answered and informed consent was obtained. Patient identification and proposed procedure were verified by the physician in the pre-procedure area. Mental Status Examination: alert and oriented. Airway Examination: normal oropharyngeal airway and neck mobility. Respiratory Examination: clear to auscultation. CV Examination: normal. Prophylactic Antibiotics: The patient does not require prophylactic antibiotics. Prior Anticoagulants: The patient has taken no previous anticoagulant or antiplatelet agents. ASA Grade Assessment: II - A patient with mild systemic disease. After reviewing the risks and benefits, the patient was deemed in satisfactory condition to undergo the procedure. The anesthesia plan was to use monitored anesthesia care (MAC). Immediately prior to administration of medications, the patient was re-assessed for adequacy to receive sedatives. The heart rate, respiratory rate, oxygen saturations, blood pressure, adequacy of pulmonary ventilation, and response to care were monitored throughout the procedure. The physical status of the patient was re-assessed after the procedure. After obtaining informed consent, the endoscope was passed under direct vision. Throughout the procedure, the patient's blood pressure, pulse, and oxygen saturations were monitored continuously. The gastroscope was introduced through the mouth, and advanced to the second part of duodenum. The upper GI endoscopy was accomplished without difficulty. The patient tolerated the procedure well. Scope In: 11:10:34 AM Scope Out: 11:15:32 AM Total Procedure Duration Time 0 hours 4 minutes 58 seconds Findings: Non-severe esophagitis was found 36 to 38 cm from the incisors. Biopsies were taken with a cold forceps for histology. Verification of patient identification for the specimen was done. Estimated blood loss was minimal. Diffuse moderate inflammation characterized by congestion (edema), erosions and erythema was found in the gastric body and in the gastric antrum. Biopsies were taken with a cold forceps for histology. Verification of patient identification for the specimen was done. Estimated blood loss was minimal. Patchy moderately erythematous mucosa without active bleeding and with no stigmata of bleeding was found in the duodenal bulb, in the first portion of the duodenum and in the second portion of the duodenum. Impression: - Non-severe reflux esophagitis. Biopsied. - Bile gastritis. Biopsied. - Erythematous duodenopathy. Recommendation: - Discharge patient to home. - Resume previous diet. - Continue present medications. - Await pathology results. Procedure Code(s): --- Professional --- 50583, Esophagogastroduodenoscopy, flexible, transoral; with biopsy, single or multiple CPT copyright 2017 [employer]. All rights reserved. The codes documented in this report are preliminary and upon high school guidance counselor review may be revised to meet current compliance requirements. Sage Doshi DO 05/01/2022 11:24:51 AM This report has been signed electronically. Number of Addenda: 0 Note Initiated On: 05/01/2022 11:02 AM
--- NOTE | 2022-05-01 11:25 | OP.CCLET_ITS ---
05/01/2022 Blaze Howard Re : Upper GI endoscopy procedure for Kalyan Sanchez Dear Dr. Howard This procedure was performed on Sunday, May 01, 2022. My impressions and recommendations are as follows: Impressions : - Non-severe reflux esophagitis. Biopsied. - Bile gastritis. Biopsied. - Erythematous duodenopathy. Recommendations : - Discharge patient to home. - Resume previous diet. - Continue present medications. - Await pathology results. My findings are described in the full procedure note, which is enclosed. If I can be of further assistance, please feel free to contact me at . Sincerely, Sage Doshi, 05/01/2022 11:24:51 AM This report has been signed electronically.
== END 2022-05-01 12:21 | disposition home or self-care (01) ==
LOC: EN 10:15 → AC 10:19
PROVIDERS: PCP Family Medicine; Referring Provider Family Medicine; Visit Provider Internal Medicine Gastroenterology
PROC: 0DJ08ZZ Inspection of Upper Intestinal Tract, Via Natural or Artificial Opening Endoscopic (ICD-10-PCS; CPT 43235; principal; 2022-05-01 11:10)
DX: K21.00 Gastro-esophageal reflux disease with esophagitis, without bleeding (principal); K29.50 Unspecified chronic gastritis without bleeding
CPT/HCPCS: 43239; 88305; 88313; 88342; J7120; J2405

== ENCOUNTER → 2022-11-29 | Outpatient (CLI) | payer MEDICARE, SELFPAY ==
[2022-11-29 11:05] LABS: Bacteria 0 SEEN /hpf (None Seen); Mucous, Urine 0 SEEN /hpf (<or=2+); Squamous Epithelial Cells - UA 0 SEEN /hpf (0-5); White Blood Cells 0 SEEN /hpf (0-5)
[2022-11-29 12:35] LABS: Color, Urine Yellow (Yellow); Glucose, Dipstick Normal (Normal); Ketone-Dipstick Negative (Negative); Leukocyte Esterase-Dipstick Negative /ul (Negative); Nitrite-Dipstick Negative (Negative); Occult Blood-Urine 25 /ul (Negative); Protein-Dipstick Negative (Negative); Specific Gravity, Urine 1.005 (1.002-1.030); Urine Bilirubin Dipstick Negative (Negative); Urine Clarity Clear (Clear); Urine Urobilinogen Normal (Normal); Urine pH 6.5 (5.0 - 8.0)
[2022-11-29 12:50] LABS: Red Blood Cells-Urine 0-5 SEEN /hpf (0-5)
== END | disposition home or self-care (01) ==
LOC: LAB 11:02
PROVIDERS: PCP Family Medicine; Referring Provider Internal Medicine Gastroenterology; Visit Provider Internal Medicine Gastroenterology
DX: R10.9 Unspecified abdominal pain (principal)
CPT/HCPCS: 81001

== ENCOUNTER → 2022-12-21 | Outpatient (CLI) | payer MEDICARE, SELFPAY ==
--- NOTE | 2022-12-21 07:39 | CT_ITS ---
STUDY: CT ABDOMEN AND PELVIS WITH CONTRAST REASON FOR EXAM: Male, 67 years old. Hiatal hernia and abdominal pain RADIATION DOSAGE (If Supplied By Facility): CTDIvol = ( 29.89 ) mGy, DLP = ( 727.74 ) mGycm TECHNIQUE: Oral and IV Readi-CAT and 100mL Isovue-300 was administered. Transaxial images were obtained from the dome of the diaphragm to the symphysis pubis. Multiplanar coronal and sagittal images were reformatted. Individualized Dose Optimization Techniques Were Used For This CT. COMPARISON: Prior study dated: 09/02/2019 FINDINGS: The visualized lung bases are essentially unremarkable. Small calcified granuloma in the right middle lobe. The visualized portions of the heart are within normal limits. Normal liver. Normal gallbladder and extrahepatic biliary system. Normal spleen. [3 mm cyst in the region of the pancreas. Normal bilateral adrenal glands. Normal visualized stomach. Normal small intestine. Filling defects in the jejunal loop with mild thickening could reflect ingested materials (image 63 series 2). Mild diverticulosis of the sigmoid colon without evidence of acute diverticulitis. The appendix appears unremarkable. There is atherosclerotic calcification of the abdominal aorta, without a demonstrated aneurysm. No retroperitoneal adenopathy. Normal right kidney. Normal left kidney. Normal urinary bladder. Enlarged prostate indenting the bladder base. Correlation with PSA level is recommended. There is a left-sided inguinal hernia containing adipose tissue. Small umbilical hernia containing fat unchanged. Degenerative changes of the spine. CT/Abdomen/Pelvis WITH Contrast IMPRESSION: 1. No focal acute inflammatory process. 2. Linear filling defect in small bowel loop with mild thickening could reflect ingested materials. 3. Persistent small umbilical and left inguinal hernias containing fat. 4. Enlarged prostate. Electronically Signed: Amado Davis MD at 8:21 EST ,
[2022-12-21 08:08] LABS: CREATININE FINGERSTICK 1.1 mg/dL (0.70-1.30); EGFR FINGERSTICK > 60.0000 mL/min (>60)
== END | disposition home or self-care (01) ==
LOC: CT 07:39
PROVIDERS: PCP Family Medicine; Referring Provider Internal Medicine Gastroenterology; Visit Provider Internal Medicine Gastroenterology
DX: K44.9 Diaphragmatic hernia without obstruction or gangrene (principal); R10.9 Unspecified abdominal pain
CPT/HCPCS: 74177; Q9967

== ENCOUNTER → 2023-01-25 | Outpatient (CLI) | payer MEDICARE, SELFPAY ==
[2023-01-25 16:04] LABS: ALB/GLOB Ratio 0.9 RATIO (0.9-2.4); AST(SGOT) 20 U/L (15-37); Alanine Aminotransfer ALT/SGPT 21 U/L (16-61); Albumin, Serum 3.6 g/dL (3.2-5.0); Alkaline Phosphatase 88 U/L (45-117); Anion Gap 6 (5-15); BUN 17 mg/dL (7-18); BUN/Creat Ratio 15.5 RATIO (10-20); Calcium,Total 8.6 mg/dL (8.5-10.1); Chloride 107 mmol/L (98-107); Cholesterol 199 mg/dL (200); EST Glomerular Filtration Rate 70 mL/min (>60); Est Glom Filt Rate - Afr Amer 85 mL/min (>60); Globulin 3.8 g/dL (2.2-4.2); Glucose 87 mg/dL (74-106); High Density Lipoprotein 53 mg/dL; PSA,Total- Diagnostic 8.93 ng/mL (0.0-4.0); Potassium 3.9 mmol/L (3.5-5.1); Protein, Total 7.4 g/dL (6.4-8.2); Sodium Level 141 mmol/L (136-145); Triglycerides 127 mg/dL; Very Low Density Lipoprotein 25 mg/dL (5-40)
== END | disposition home or self-care (01) ==
LOC: BIMLAB 14:27
PROVIDERS: PCP Family Medicine; Visit Provider Family Medicine
DX: R97.20 Elevated prostate specific antigen [PSA] (principal); I10 Essential (primary) hypertension
CPT/HCPCS: 36415; 80053; 80061; 84153

== ENCOUNTER → 2023-01-31 | Outpatient (CLI) | payer MEDICARE, SELFPAY ==
--- NOTE | 2023-01-31 13:44 | US_ITS ---
EXAM: US <TEMPLATE> CLINICAL INDICATION: urinary retension TECHNIQUE: Real-time ultrasound of the post void residual urine/bladder with image documentation. COMPARISON: No relevant prior studies available. FINDINGS: Bladder measures 8.2 x 8.3 x 8.9 cm for volume of 319 mL. The bladder wall measures 3 mm. Prostate gland is enlarged indenting the base of the bladder measures 5.9 x 5.8 x 4.2 cm. There is a lobular exophytic prominent structure arising prostate measures 1.8 x 2.3 x 1.7 cm. Post void the bladder measures 8.0 x 6.4 x 5.9 cm for a post void volume of 160 mL. US/Post Void Residual Bladder IMPRESSION: Large post void volume of 160 mL. There is an enlarged prostate gland. Electronically Signed: Nithin Bentley MD at 23:04 EST ,
== END | disposition home or self-care (01) ==
LOC: US 13:43
PROVIDERS: PCP Family Medicine; Referring Provider Family Medicine; Visit Provider Family Medicine
DX: R33.9 Retention of urine, unspecified (principal)
CPT/HCPCS: 51798

== ENCOUNTER → 2023-03-13 | Outpatient (CLI) | payer MEDICARE, SELFPAY ==
[2023-03-13 10:10] LABS: Bacteria 0 SEEN /hpf (None Seen); Mucous, Urine 0 SEEN /hpf (<or=2+); Red Blood Cells-Urine 0 SEEN /hpf (0-5); Squamous Epithelial Cells - UA 0 SEEN /hpf (0-5); White Blood Cells 0 SEEN /hpf (0-5)
--- OUTSIDE RECORDS SUMMARY | 2023-03-13 11:14 | XMS RPT_ITS | CCD ---
Author Name Unknown Address [address] [place] [address] Organization [facility] Care Team Providers Care Load Mixer Name Role Phone NEGAR, LUANA Neeru Unavailable Unavailable BROWN, RAJEEV Unavailable Unavailable BROWN, RAJEEV Unavailable Unavailable BROWN, RAJEEV Unavailable Unavailable Results Test Name Value Interpretation Reference Range Facil ity Encounters Encounter Date Encounter Type Care Provider Facility Start: 04-25-2017 End: 04-26-2017 Ambulatory RAJEEV SALDIVAR [facility] Start: 03-01-2017 End: 03-02-2017 Ambulatory LUANA Siddiqi NEGAR [facility] Payers Date Payer Category Payer Unknown [id number] Summary Purpose Family History No Family History Records FoundNo Family History Records FoundNo Family History Records Found Advance Directives No Advanced Directives Records FoundNo Advanced Directives Records FoundNo Advanced Directives Records Found Procedure Findings Note HNO ID: [id number] Author: Ros Montanez Service: ? Author Type: Nurse Cushion Maker Type: Anesthesia Procedure Notes Filed: 12/08/2019 8:17 AM Note Text: ANESTHESIOLOGY PROCEDURE NOTE Airway General Information Procedure Start Time/Medication Administration: 12/08/2019 7:56 AM Patient location during procedure: OR Timeout Performed Pre-procedure: timeout performed Consent Obtained: Yes Patient identity confirmed: arm band and patient Staffing MIDWIFE PRACTITIONER: Amaya Montanez Indications and Patient Condition Preoxygenated: yes Patient position: sniffing Manual In- Line Stabilization: No Difficult Mask: No Indications for airway management: anesthesia and airway protection anesthesia circuit Method: asleep Cricoid Pressure: No Final Airway Details Final airway type: endotracheal airway Final Endotracheal Airway: ETT Cuffed: yes Successful intubation technique: video laryngoscopy Devices used: Lobo Endotracheal tube insertion site: oral Blade: Tamara Blade size: #4 ETT size (mm): 7.5 Measu (more content not included)... Note HNO ID: [id number] Author: Ros Ferraro Service: Endocrine Surgery Author Type: Physician Type: Brief Op Note Filed: 12/08/2019 10:00 AM Note Text: BRIEF OPERATIVE NOTE PATIENT NAME: Kalyan Barbosa LOG ID: [id number] Surgery/Procedure Date: 12/08/2019 Incision/Procedure Start Time: 8:17 AM Incision Close/Procedure End Time: 9:58 AM Surgeon(s)/Proceduralist(s) and Final Inspector Movement Assembly(s): Surgeon(s) and Role: * uGzman Chang - Primary * Nain Ferraro - Resident - Assisting Physician Final Inspector Movement Assembly: Julisa Gould (Pa) Procedure(s): Procedure(s): PARATHYROIDECTOMY Anesthesia: General Findings: enlarged right upper parathyroid gland, excised entirely Estimated Blood Loss: 10 mls Specimens: Specimen ID Type Site Comments Sent To 1 Tissue right thyroid nodule r/o cancer F.S. Pathology Frozen 2 Tissue right upper parathyroid totally excised, portion submitted F.S. [id number] Pathology Frozen 3 Tissue right upper parathyroid for tissue procurement - sent fresh Pathology Fresh Complications: None Pr (more content not included)... Additional Source Comments (unrecognized sect ion and content) No Status Records FoundNo Status Records FoundNo Status Records Found INFORMATION SOURCE (unrecogn ized section and content) DATE CREATED AUTHOR AUTHOR'S ORGANIZ ATION 12/13/2019 [facility] DATE CREATED AUTHOR AUTHOR'S ORGANIZ ATION 01/23/2021 [facility] FOR RECORDS PERTAINING TO PATIENTS WHO ARE OR HAVE BEEN ENROLLED IN A CHEMICAL DEPENDENCY/SUBSTANCEABUSE PROGRAM, SOME INFORMATION MAY BE OMITTED. This clinical summary was aggregated from multiple sources. Caution should be exercised in using it in the provision of clinical care. This summary normalizes information from multiple sources, and as a consequence, information in this document may materially change the coding, format and clinical context of patient data. In addition, data may be omitted in some cases. CLINICAL DECISIONS SHOULD BE BASED ON THE PRIMARY CLINICAL RECORDS. [facility] [facility]. provides no warranty or guarantee of the accuracy or completeness of information in this document.
[2023-03-13 12:15] LABS: Color, Urine Yellow (Yellow); Glucose, Dipstick Normal (Normal); Ketone-Dipstick Negative (Negative); Leukocyte Esterase-Dipstick Negative /ul (Negative); Nitrite-Dipstick Negative (Negative); Occult Blood-Urine 10 /ul (Negative); Protein-Dipstick Negative (Negative); Urine Bilirubin Dipstick Negative (Negative); Urine Clarity Clear (Clear); Urine Urobilinogen Normal (Normal); Urine pH 6.5 (5.0 - 8.0)
== END | disposition home or self-care (01) ==
LOC: LABSPEC 10:07
PROVIDERS: PCP Family Medicine; Visit Provider Family Medicine
DX: I10 Essential (primary) hypertension (principal); N40.0 Benign prostatic hyperplasia without lower urinary tract symptoms
CPT/HCPCS: 81001

== ENCOUNTER 2023-05-31 01:07 | Emergency (ER) | payer MEDICARE, SELFPAY ==
[2023-05-31] VITALS (7 sets, daily range): BP systolic 113–161; BP diastolic 69–91; PULSE 70–95; RESP 16–20; TEMP 36.9; O2SAT 95–97; BMI 26.9
--- NOTE | 2023-05-31 01:25 | EKG12_ITS ---
Test Reason : CP Blood Pressure : / mmHG Vent. Rate : 094 BPM Atrial Rate : 094 BPM P-R Int : 174 ms QRS Dur : 094 ms QT Int : 340 ms P-R-T Axes : 022 -11 -04 degrees QTc Int : 425 ms Normal sinus rhythm Normal ECG When compared with ECG of 05-APR-2011 16:54, No significant change was found Confirmed by MANUEL GHOSH, HEIDI ([id number]), book or script editor MICHELE WELCH ([id number]) on 06/07/2023 11:45:43 AM Referred By: JULIANNA Confirmed By:HEIDI JACKSON MD
--- NOTE | 2023-05-31 01:25 | RAD_ITS ---
EXAM: XR CHEST, 2 VIEWS CLINICAL INDICATION: chest pain TECHNIQUE: Frontal and lateral views of the chest. COMPARISON: No relevant prior studies available. FINDINGS: LUNGS AND PLEURAL SPACES: Unremarkable with the exception of small calcified granulomata in the right upper lung field. No consolidation or edema. No pneumothorax. No effusion. HEART: Unremarkable. Cardiac silhouette not enlarged. MEDIASTINUM: Central airways and mediastinal contour are unremarkable. BONES/JOINTS: Unremarkable with the exception of mild thoracic spondylosis. No acute fracture. SOFT TISSUES: Unremarkable. RAD/Chest PA and Lateral IMPRESSION: No radiographic evidence of acute cardiopulmonary disease. Electronically Signed: Christina Scales MD at 3:41 EDT ,
[2023-05-31 01:36] LABS: Absolute Neutrophil Count 10.6 X10^3/uL (2.0-7.7); Basophil# 0.09 X10^3/uL; Basophil% 0.7 % (0-1); Eosinophils% 1.5 % (0-5); Hematocrit 46.9 % (40-54); Hemoglobin 15.6 g/dL (13.0-16.5); Lymphocyte % 10.6 % (19-41); Mean Corp Hgb Conc 33.3 g/dL (32-36); Mean Corpuscular Hgb 30.6 pg (27.0-32.0); Mean Platelet Vol. 9.1 fl (6.2-12.0); Monocyte# 0.96 X10^3/uL; Monocyte% 7.2 % (0-10); NRBC Flagged by Analyzer 0 % (0-5); Neutrophil # 10.57 X10^3/uL (2.7-7.7); Neutrophil % 79.6 % (47-70); Platelet Count 295 K/mm3 (150-450); White Blood Count 13.3 K/mm3 (4.4-11.0)
[2023-05-31 01:55] LABS: D-Dimer Quantitative (DVT/PE) 0.43 FEU/ug/m (0.27-0.49)
[2023-05-31 02:04] LABS: Anion Gap 6 (5-15); BUN 20 mg/dL (7-18); Calcium,Total 9.2 mg/dL (8.5-10.1); Chloride 105 mmol/L (98-107); Creatinine, Serum 1.11 mg/dL (0.70-1.30); EST Glomerular Filtration Rate 70 mL/min (>60); Est Glom Filt Rate - Afr Amer 84 mL/min (>60); Estimated Creatinine Clearance 61.92 ml/min; Glucose 122 mg/dL (74-106); Magnesium 2.1 mg/dL (1.6-2.6); Potassium 3.2 mmol/L (3.5-5.1); Sodium Level 140 mmol/L (136-145); Troponin-I HS 4 pg/mL (3.0-78.0)
--- NOTE | 2023-05-31 03:54 | EDS_ITS ---
HPI History of Present Illness Chief Complaint: Chest Pain Informant: patient and spouse/S.O. Narrative Narrative: Patient is a 68-year-old male with past medical history of hypertension and parathyroid adenoma and BPH. He reports that over the past 1 to 2 weeks he has had intermittent fluttering sensation in his left chest. He also states he had intermittent sensations of heaviness or chest discomfort. He denies any recent trauma prior to the pain beginning. He denies any nausea vomiting or diaphoresis or shortness of breath associated with his fluttering sensation. He denies any excessive stimulant use or illicit drug use. He states that this evening symptoms seem more intense and were lasting longer than previously and secondary to this he comes in for evaluation [facility] Medical History Acid reflux Alcohol use Back pain DVT (deep venous thrombosis) History of diverticulitis Hyperparathyroidism Hypertension Hypertension Non-smoker Prostate disease Reflux esophagitis Home Medications valsartan 320 mg-hydrochlorothiazide 12.5 mg tablet 1 tab PO DAILY #90 tabs 01/25/23 [Rx Last Taken Unknown] pantoprazole 40 mg tablet,delayed release 40 mg PO DAILY #90 tabs 03/07/23 [Rx Last Taken Unknown] alfuzosin 10 mg tablet,extended release 24 hr (Uroxatral) 10 mg PO DAILY #90 tabs 03/13/23 [Rx Last Taken Unknown] Allergy/AdvReac Type Severity Reaction Status Date / Time No Known Allergies Allergy Verified 05/31/23 01:09 Family History Father CVA (cerebral vascular accident) Hypertension Surgical History H/O lithotripsy H/O parathyroidectomy History of back surgery History of knee surgery Hx of colonoscopy Hx of left cataract extraction Social History Smoking Status: Never smoker alcohol intake: current alcohol intake frequency: holidays/special occasions only substance use type: does not use what type of physical activity do you participate in: running, bicycling and weight training frequency: daily ROS ROS ED Constitutional Constitutional ED: Denies chills or fever(s) ENT ENT ED: Denies sore throat Cardiovascular Cardiovascular: Reports chest pain and palpitations Respiratory/Chest Respiratory/Chest: Denies cough or dyspnea Gastrointestinal Gastrointestinal: Denies abdominal pain, diarrhea, nausea or vomiting Genitourinary Genitourinary ED: Denies dysuria Musculoskeletal Musculoskeletal: Denies myalgias Integumentary Denies rash Neurologic Neurologic: Denies headache(s), paresthesias or weakness Hematologic/Lymphatic Hematologic/Lymphatic: Denies easy bleeding or easy bruising EXAM Physical Exam Const Vital Signs: 05/31/23 01:09 05/31/23 01:08 05/31/23 01:16 Temperature 98.4 F 98.4 F 98.4 F Temperature Source Oral Oral Oral Pulse Rate 95 93 93 Respiratory Rate 18 18 20 H Blood Pressure 161/91 H 161/91 H 138/82 H Blood Pressure Mean 114 114 100 Pulse Ox 97 97 97 Oxygen Delivery Method Room Air Room Air Room Air 05/31/23 02:08 05/31/23 03:00 Temperature Temperature Source Pulse Rate 82 75 Respiratory Rate 16 18 Blood Pressure 113/69 121/72 H Blood Pressure Mean 83 88 Pulse Ox 95 95 Oxygen Delivery Method Room Air Room Air Positive well nourished and well developed General Appearance ED: well developed; Negative for pallor HEENT Reports moist mucous membranes Eyes PERRL and EOMs intact bilaterally General Eye ED: Negative for scleral icterus Neck supple and no JVD Neck Narrative: No nuchal rigidity or meningeal signs Chest Wall palpation of chest normal Chest Narrative: No bony deformity or crepitance of the chest wall Resp normal respiratory effort and clear to auscultation bilaterally Cardio regular rate and regular rhythm Rate: other Other Details: Heart is regular rate and rhythm without murmurs rubs or gallops Radial and carotid pulses are equal and symmetric GI normal to inspection, nondistended, normoactive bowel sounds, non-tender, non- distended and no masses GI Narrative: No voluntary guarding or rigidity or pulsatile mass Auscultation: normoactive bowel sounds Palpation: soft Extremity normal to inspection Extremity Narrative: No asymmetric edema no pitting edema negative Homans' sign bilaterally Neuro oriented x3, CN's II-XII intact bilaterally and no sensory deficits noted Sensorium / Orientation: alert Motor Exam: strength 5/5 throughout Psych mental status grossly normal Skin no rashes or lesions noted and no wounds Skin Narrative: No overlying soft tissue skin changes to suggest trauma or infection General Skin Exam: Negative for jaundice or pallor MDM MDM MDM Narrative Medical decision making narrative: Patient arrived to the ER hypertensive but otherwise with stable vitals. He reported intermittent fluttering and chest discomfort. He does have a family history of A-fib in his mother and brother. Based on his medical condition and symptoms differential diagnosis is for acute coronary syndrome versus cardiac dysrhythmia versus pneumonia versus pneumothorax versus electrolyte abnormality versus pulmonary embolus. Blood work was obtained and reveals a troponin of 4 and a delta that stayed the same going against acute coronary syndrome. D-dimer is normal going against DVT/PE or dissection. Chest x-ray revealed no acute lung pathology. Patient was kept on the monitor his entire ER stay and had no documented dysrhythmia. Therefore at this time as patient's overall workup is negative and his symptoms have spontaneously resolved I do not feel there is need for admission or further ER evaluation he is otherwise safe for discharge History & Record Review Discussion w/independent historian: Patient and Significant other Lab Data Attestation: I reviewed the patient's lab results. Labs: Laboratory Results - last 24 hr 05/31/23 05/31/23 01:10 03:28 WBC 13.3 H RBC 5.10 Hgb 15.6 Hct 46.9 MCV 92.0 MCH 30.6 MCHC 33.3 RDW Std Deviation 44.0 H RDW Coeff of Raghu 13.0 Plt Count 295 MPV 9.1 Immature Gran % (Auto) 0.400 Neut % (Auto) 79.6 H Lymph % (Auto) 10.6 L Leon % (Auto) 7.2 Eos % (Auto) 1.5 Baso % (Auto) 0.7 Absolute Neuts (auto) 10.6 H Absolute Lymphs (auto) 1.40 Nucleated RBC % 0 D-Dimer Quant (PE/DVT) 0.43 Sodium 140 Potassium 3.2 L Chloride 105 Carbon Dioxide 29.0 Anion Gap 6 BUN 20 H Creatinine 1.11 Estim Creat Clear Calc 61.92 Est GFR (MDRD) Af Amer 84 Est GFR (MDRD) Non-Af 70 BUN/Creatinine Ratio 18.0 Glucose 122 H Calcium 9.2 Magnesium 2.1 Troponin I High Sens 4 4 TSH 7.10 H Radiography Diagnostic Testing: Clinical Impression(s) from Imaging Studies Chest X-Ray 05/31/23 01:25 IMPRESSION: No radiographic evidence of acute cardiopulmonary disease. Electronically Signed: Christina Scales MD at 3:41 EDT , 2 view chest x-ray as interpreted by the emergency medicine physician reveals no acute infiltrate pneumothorax or pleural effusion or widening of the mediastinum Discharge Plan Triage Chief Complaint: Chest Pain ED Provider: Stanley Jones Dx/Rx/DC Orders Clinical Impression: Palpitations, Nonspecific chest pain, Hypertension, Hypokalemia Instructions: ED Chest Pain, Uncertain Cause, ED Palpitations Prescriptions: No Action valsartan-hydrochlorothiazide 320-12.5 mg tablet 1 tab PO DAILY Qty: 90 3RF alfuzosin [Uroxatral] 10 mg tablet extended release 24 hr 10 mg PO DAILY Qty: 90 0RF Rx Instructions: administer after the same meal each day pantoprazole 40 mg tablet,delayed release (DR/EC) 40 mg PO DAILY Qty: 90 3RF Primary Care Provider: Blaze Howard Referrals: Blaze Howard, DO [Primary Care Provider] - Activity Restrictions/Additional Instructions: Please follow-up with your family doctor to discuss obtaining a Holter monitor to further assess for abnormal cardiac rhythm. Also discussed repeat laboratory testing to further assess the thyroid which was found to be more underactive on today's visit. Return to the ER should you have any further concerns Disposition Disposition: Home, Self Care
[2023-05-31 04:01] LABS: Troponin-I HS 4 pg/mL (3.0-78.0)
== END 2023-05-31 04:26 | disposition home or self-care (01) ==
PROVIDERS: Emergency Provider Emergency Medicine; PCP Family Medicine; Visit Provider Emergency Medicine
DX: R00.2 Palpitations (principal); R07.9 Chest pain, unspecified; I10 Essential (primary) hypertension; E87.6 Hypokalemia; Z86.718 Personal history of other venous thrombosis and embolism
CPT/HCPCS: 71046; 80048; 83735; 84443; 84484; 85025; 85379; 93005; 99283; J7030

== ENCOUNTER 2023-09-23 15:03 | Emergency (ER) | payer MEDICARE, SELFPAY ==
[2023-09-23 15:04] VITALS: BP 123/88; PULSE 83; RESP 18; TEMP 36.5; O2SAT 97; BMI 26.4
--- NOTE | 2023-09-23 15:44 | EKG12_ITS ---
Test Reason : CP Blood Pressure : / mmHG Vent. Rate : 079 BPM Atrial Rate : 079 BPM P-R Int : 158 ms QRS Dur : 094 ms QT Int : 358 ms P-R-T Axes : 017 013 014 degrees QTc Int : 410 ms Normal sinus rhythm Normal ECG Confirmed by ONEAL GHOSH, JATINDER ([id number]), production editor MICHELE WELCH ([id number]) on 09/28/2023 6:50:03 AM Referred By: KATE/KETAN Confirmed By:GEOVANNA NO MD
--- NOTE | 2023-09-23 15:54 | ED.VIS.CHEST ---
HPI History of Present Illness Chief Complaint: Chest Pain Informant: patient Onset/Context/Timing Onset: Month(s) Activity at onset: gradual Timing: Intermittent Quality: Positive for Pain Location: Left Chest Current Severity: Gone Maximum Severity: Mild Worsened By: Nothing Relieved By: Nothing Associated Symptoms: Negative for Nausea, Vomiting, Diaphoresis, Dyspnea, Cough, Fever, Lightheadedness, Acid Reflux or Palpitations Narrative Narrative: 68-year-old male history of hypertension he did have a DVT years ago after a knee surgery. States he has been having intermittent chest pain for months. Began around May. Is not exertional. He is no exertional chest pain or shortness of breath. He golfs frequently walks 18 holes and has no problem while doing that or cutting his lawn. He has no cardiac history. He is never had a stress test or heart cath. He describes it more as a soreness. Denies any leg pain or swelling. No hemoptysis. Is not pleuritic. Prior Similar Symptoms: Yes Recent Illness/Hospitalization: No CVD Risk Factors: Positive for Hypertension; Negative for Diabetes, Hypercholesterolemia, Family History 1' </=55 or Smoking PE Risk Factors: Negative for Recent Travel/Surgery, Recent Immobilization, Prior DVT or PE, Cancer or OCP + Smoking + >/=35 TAD Risk Factors: Negative for Marfan's Syndrome [facility] Medical History Alcohol use Prostate disease DVT (deep venous thrombosis) Back pain History of diverticulitis Non-smoker Hypertension Acid reflux Reflux esophagitis Hyperparathyroidism Hypertension Home Medications ?Medication ?Instructions ?Recorded ?Last Taken ?Type pantoprazole 40 mg tablet,delayed 40 mg PO DAILY #90 tabs 06/01/23 Unknown Rx release alfuzosin 10 mg tablet,extended 10 mg PO DAILY #90 tabs 06/19/23 Unknown Rx release 24 hr (Uroxatral) pantoprazole 20 mg tablet,delayed 20 mg PO DAILY #30 tabs 08/24/23 Unknown Rx release valsartan 320 1 tab PO DAILY 09/23/23 Unknown History mg-hydrochlorothiazide 12.5 mg tablet Allergy/AdvReac Type Severity Reaction Status Date / Time No Known Allergies Allergy Verified 09/23/23 15:04 Family History Father CVA (cerebral vascular accident) Hypertension Surgical History Hx of colonoscopy Hx of left cataract extraction H/O parathyroidectomy H/O lithotripsy History of knee surgery History of back surgery Social History Smoking Status: Never smoker alcohol intake: current alcohol intake frequency: holidays/special occasions only substance use type: does not use what type of physical activity do you participate in: running, bicycling and weight training frequency: daily ROS ROS ED ROS Narrative Nonexertional chest pain. Constitutional Constitutional ED: Denies chills or fever(s) Eyes Eyes: Reports none ENT ENT ED: Denies ear pain Cardiovascular Cardiovascular: Reports chest pain Respiratory/Chest Respiratory/Chest: Denies cough, dyspnea or dyspnea on exertion Gastrointestinal Gastrointestinal: Denies abdominal pain Genitourinary Genitourinary ED: Denies dysuria or hematuria Musculoskeletal Musculoskeletal: Denies arthralgias, back pain, myalgias or neck pain Integumentary Denies abscess or Abrasions Neurologic Neurologic: Denies headache(s) Psychiatric Psychiatric: Denies anxiety or depression Endocrine Endocrinology: Denies cold intolerance Hematologic/Lymphatic Hematologic/Lymphatic: Denies easy bleeding Allergic/Immunologic Allergic/Immunologic ED: Denies mouth swelling, tongue swelling or urticaria EXAM Physical Exam Narrative Exam Narrative: Well-appearing 68-year-old male. Vital signs stable afebrile. H EENT exam unremarkable. Neck nontender no JVD. Lungs clear to auscultation bilateral. Heart regular rate and rhythm rate about 80 no murmur. Chest wall and ribs nontender. Abdomen soft nontender. Back nontender. Moving all 4 extremities. Equal symmetrical radial pulses. 5 of 5 it trainee strength. Dorsi plantarflexion intact. Calves are nontender without edema or cords. Neurologically is awake and alert no focal motor deficits. Patient is answering questions following commands. Const Vital Signs: 09/23/23 15:04 09/23/23 15:32 09/23/23 15:48 Temperature 97.7 F L Temperature Source Temporal Pulse Rate 83 Respiratory Rate 18 Respiratory Pattern Normal Blood Pressure 123/88 H Blood Pressure Mean 99 Pulse Ox 97 Oxygen Delivery Method Room Air Room Air 09/23/23 17:03 08/18/24 19:00 Temperature Temperature Source Pulse Rate 73 76 Respiratory Rate 20 H 19 H Respiratory Pattern Blood Pressure 105/85 H 109/77 Blood Pressure Mean 91 87 Pulse Ox 96 98 Oxygen Delivery Method Room Air Room Air Positive well nourished and well developed; Negative for obese, cachectic, contractures or unkempt General Appearance ED: well developed and NAD; Negative for unkempt, cachectic, contractures or pallor Nutritional Appearance: Negative for cachectic or obese HEENT Reports moist mucous membranes normocephalic and atraumatic; Negative for trauma or tenderness Eyes PERRL and EOMs intact bilaterally General Eye ED: Negative for pale conjunctiva or scleral icterus Neck no lymphadenopathy, supple and no JVD General: Negative for tenderness Chest Wall inspection of chest normal and palpation of chest normal Chest: Negative for tenderness Resp normal respiratory effort and clear to auscultation bilaterally Effort and Inspection: Negative for respiratory distress Auscultation: Negative for rales, rhonchi, wheezes or diminished lung sounds Cardio regular rate, regular rhythm, S1 normal heart sound, S2 normal heart sound and no murmurs Rate: Negative for bradycardia or tachycardic Rhythm: Negative for abnormal rhythm Peripheral Pulses: pulses 2+ throughout GI normal to inspection, nondistended, normoactive bowel sounds, soft to palpation, non-tender, non-distended and no masses Back/Spine no CVA tenderness and no thoracic nor lumbar tenderness General Back: Negative for CVA tenderness Cervical Spine: Negative for cervical spine tenderness Extremity normal to inspection General Extremety ED: Negative for edema, pulses abnormal or tenderness General Extremity: Negative for edema or pulses abnormal Neuro oriented x3 and CN's II-XII intact bilaterally Sensorium / Orientation: awake, alert, oriented to person, oriented to place and oriented to time; Negative for confused, lethargic or stuporous Motor Exam: strength 5/5 throughout; Negative for general weakness or strength abnormal Psych mental status grossly normal Appearance: Negative for unkempt Attitude: No agitated Mood & Affect: Negative for depressed, anxious or tearful Skin no rashes or lesions noted and no wounds General Skin Exam: Negative for jaundice or pallor Rashes: No rashes noted Trauma: Negative for abrasion, laceration or puncture Heart Score History: Slightly/Non-Suspicious ECG: Normal Age: >/= 65 years Risk Factors: 1 or 2 Risk Factors Troponin: </= Normal Limit Score: 3 MDM MDM MDM Narrative Medical decision making narrative: Gentleman with atypical nonreproducible nonexertional chest pain monitor cardiac workup. I am going to obtain a D-dimer due to his prior history of DVT but that was postsurgery and I clinically do not have a strong suspicion that this is a DVT or PE. Repeat exam at 8:00 PM patient doing well. Pain-free. Symptom-free. We discussed all his test results. Is chest x-ray EKG and labs are unremarkable. He has a negative D-dimer and negative troponin x 2. We discussed options of admission for inpatient stress test for chest pain of uncertain etiology versus outpatient. He prefer outpatient. He does not have a strong story for cardiac chest pain. It is nonexertional. He actually feels better with exertion. He seen his primary care physician on Sunday and will follow-up with him and discussed with him an outpatient stress test. Otherwise currently his exam is normal and unchanged. He has a completely normal neurologic exam also. He and his are comfortable with him being discharged to home with outpatient follow-up. He knows to return if worse. History & Record Review Discussion w/independent historian: Patient and Family Additional record(s) reviewed:: Prior inpatient record, Prior outpatient record, Prior ED visit, Prior labs and No prior records Lab Data Attestation: I reviewed the patient's lab results. Lab results narrative: CBC normal. White count 8. H&H 15 and 46. Platelets 304. Electrolytes unremarkable gap 5. BUN and creatinine 19 and 1.1. Glucose 103. Initial troponin 4. 2-hour troponin 4. D-dimer is normal also at 0.4 Labs: Laboratory Results - last 24 hr 09/23/23 09/23/23 15:40 17:55 WBC 8.9 RBC 5.09 Hgb 15.5 Hct 46.6 MCV 91.6 MCH 30.5 MCHC 33.3 RDW Std Deviation 42.7 RDW Coeff of Raghu 12.6 Plt Count 304 MPV 9.0 Immature Gran % (Auto) 0.300 Neut % (Auto) 75.1 H Lymph % (Auto) 15.0 L [place] % (Auto) 6.8 Eos % (Auto) 1.7 Baso % (Auto) 1.1 H Absolute Neuts (auto) 6.7 Absolute Lymphs (auto) 1.34 Nucleated RBC % 0 D-Dimer Quant (PE/DVT) 0.40 Sodium 139 Potassium 3.5 Chloride 105 Carbon Dioxide 29.0 Anion Gap 5 BUN 19 H Creatinine 1.19 Estim Creat Clear Calc 57.76 Est GFR (MDRD) Af Amer 78 Est GFR (MDRD) Non-Af 64 BUN/Creatinine Ratio 16.0 Glucose 103 Calcium 9.1 Troponin I High Sens 4 4 Radiography Chest X-Ray - ED: 1 View, Read by ED Physician, Read by Radiologist, Normal, Heart, Lungs, Mediastinum, Bony Structures, No Acute Disease and Chronic Changes Diagnostic Testing: Clinical Impression(s) from Imaging Studies Chest X-Ray 09/23/23 16:00 IMPRESSION: No radiographic evidence of acute cardiopulmonary disease. Electronically Signed: Nithin Bentley MD at 16:41 EDT , Chest x-ray portable 2 films. Over the by myself and the radiologist shows no acute abnormality. Normal cardiac silhouette. Normal mediastinum. Normal lung harris. Chronic changes. Rhythm Strip Rhythm Strip: Sinus Rhythm Rate: 79 Ectopy: None EKG Initial EKG: Attestation: I personally reviewed and interpreted this EKG as follows: Interpretation: Sinus Rhythm and No Acute Injury Pattern Comments: Normal sinus rhythm rate 79 no acute signs of OH or ischemia. No dysrhythmia. Discharge Plan Triage Chief Complaint: Chest Pain Other Complaint: Dizziness Headache ED Provider: Bennie Murillo Dx/Rx/DC Orders Clinical Impression: Chest pain, History of hypertension, History of deep vein thrombosis Instructions: ED Chest Pain, Uncertain Cause Prescriptions: No Action pantoprazole 20 mg tablet,delayed release (DR/EC) 20 mg PO DAILY Qty: 30 1RF valsartan-hydrochlorothiazide 320-12.5 mg tablet 1 tab PO DAILY pantoprazole 40 mg tablet,delayed release (DR/EC) 40 mg PO DAILY Qty: 90 3RF alfuzosin [Uroxatral] 10 mg tablet extended release 24 hr 10 mg PO DAILY Qty: 90 1RF Rx Instructions: administer after the same meal each day Primary Care Provider: Blaze Howard Referrals: Blaze Howard, DO [Primary Care Provider] - Keep Ama appointment Activity Restrictions/Additional Instructions: Your test today, EKG, chest x-ray and labs were normal. No heart attack. No blood clot. Follow-up with doctors appointment this week. Discussed with him an outpatient stress test. Also further evaluation for your intermittent dizziness. If you feel a lot worse return. Print Language: Burundian Disposition Disposition: Home, Self Care
[2023-09-23 15:59] LABS: Absolute Lymphocyte Count 1.34 X10^3/uL (0.83-4.51); Absolute Neutrophil Count 6.7 X10^3/uL (2.0-7.7); Basophil% 1.1 % (0-1); Eosinophil# 0.15 X10^3/uL; Eosinophils% 1.7 % (0-5); Hematocrit 46.6 % (40-54); Hemoglobin 15.5 g/dL (13.0-16.5); Lymphocyte # 1.34 X10^3/ul (0.83-4.51); Mean Corp Hgb Conc 33.3 g/dL (32-36); Mean Corpuscular Hgb 30.5 pg (27.0-32.0); Mean Corpuscular Volume 91.6 fL (80-94); Monocyte# 0.61 X10^3/uL; Monocyte% 6.8 % (0-10); NRBC Flagged by Analyzer 0 % (0-5); Neutrophil # 6.68 X10^3/uL (2.7-7.7); Neutrophil % 75.1 % (47-70); Platelet Count 304 K/mm3 (150-450); RBC Distribution Width CV 12.6 % (11.6-14.6); RBC Distribution Width SD 42.7 fl (35.1-43.9); Red Blood Count 5.09 M/mm3 (4.6-6.2); White Blood Count 8.9 K/mm3 (4.4-11.0)
--- NOTE | 2023-09-23 16:00 | RAD_ITS ---
EXAM: XR CHEST, 1 VIEW CLINICAL INDICATION: chest pain TECHNIQUE: Frontal view of the chest. COMPARISON: 05/31/2023 FINDINGS: LUNGS AND PLEURAL SPACES: Unremarkable. No consolidation or edema. No pneumothorax. No effusion. HEART: Unremarkable. Cardiac silhouette not enlarged. MEDIASTINUM: Central airways and mediastinal contour are unremarkable. BONES/JOINTS: Unremarkable. No acute fracture. SOFT TISSUES: Unremarkable. RAD/Chest 1 View (Portable) IMPRESSION: No radiographic evidence of acute cardiopulmonary disease. Electronically Signed: Nithin Bentley MD at 16:41 EDT ,
[2023-09-23] MEDS: Aspirin 81 MG TAB.CHEW 324 MG PO (16:16)
[2023-09-23 16:23] LABS: Anion Gap 5 (5-15); BUN 19 mg/dL (7-18); Calcium,Total 9.1 mg/dL (8.5-10.1); Chloride 105 mmol/L (98-107); Creatinine, Serum 1.19 mg/dL (0.70-1.30); EST Glomerular Filtration Rate 64 mL/min (>60); Est Glom Filt Rate - Afr Amer 78 mL/min (>60); Estimated Creatinine Clearance 57.76 ml/min; Glucose 103 mg/dL (74-106); Potassium 3.5 mmol/L (3.5-5.1); Sodium Level 139 mmol/L (136-145); Troponin-I HS (w/2H Reflex) 4 pg/mL (3.0-78.0)
[2023-09-23 17:03] VITALS: BP 105/85; PULSE 73; RESP 20; O2SAT 96
[2023-09-23 17:49] LABS: Reflex Troponin-HS? (from REC) Y
[2023-09-23 18:20] LABS: Troponin-I HS 4 pg/mL (3.0-78.0)
[2023-09-23 19:00] VITALS: BP 109/77; PULSE 76; RESP 19; O2SAT 98
[2023-09-23 20:16] VITALS: BP 168/71; PULSE 78; RESP 18; TEMP 36.5; O2SAT 98
== END 2023-09-23 20:17 | disposition home or self-care (01) ==
PROVIDERS: Emergency Provider Emergency Medicine; PCP Family Medicine; Visit Provider Emergency Medicine
DX: R07.9 Chest pain, unspecified (principal); I10 Essential (primary) hypertension; Z86.718 Personal history of other venous thrombosis and embolism; K21.00 Gastro-esophageal reflux disease with esophagitis, without bleeding; Z79.899 Other long term (current) drug therapy; Z98.42 Cataract extraction status, left eye
CPT/HCPCS: 71045; 80048; 84484; 85025; 85379; 93005; 99285; A4216

== ENCOUNTER → 2023-10-04 | Outpatient (CLI) | payer MEDICARE, SELFPAY ==
--- NOTE | 2023-10-04 09:45 | STRESSREP_ITS ---
Stress Test Report Date: 10/04/2023 Procedure: Exercise tolerance test/imaging study Indications: Chest pain Consent: Per the patient Procedure: The patient exercised on a Arnulfo protocol for 11 minutes achieving a peak heart rate of 169 bpm (112% predicted maximal heart rate) with a peak blood pressure 172/78 mmHg and a peak MET capacity of 13.4 METs. The baseline ECG demonstrated sinus rhythm. The peak exercise ECG demonstrated sinus tachycardia with no ischemic changes. There were no cardiac dysrhythmias pretest, during exercise, or recovery. The functional capacity was considered excellent. There was no complaint of chest discomfort during exercise or recovery. The examination was discontinued secondary to target heart rate being achieved. The patient was injected with 11.7 mCi of technetium 99m Cardiolite and subsequently rest SPECT Cardiolite nuclear imaging was obtained in the horizontal long, vertical long, and short axis views. Post-exercise, the patient was injected with 34.6 mCi of technetium 99m Cardiolite and subsequently stress SPECT Cardiolite nuclear imaging was obtained in the horizontal long, vertical long, and short axis views. A gated Cardiolite study at peak stress was obtained. Rest and stress SPECT Cardiolite nuclear imaging status post realignment and normalization, demonstrates the appearance of relative uniform tracer uptake and myocardial perfusion appearing within normal limits. There is end systolic thickening and brightening. The gated Cardiolite study demonstrates myocardial thickening and inward wall motion. The reported LVEF is 71%. Impression: 1. Technically adequate (percent predicted maximal heart rate greater than 85%) exercise tolerance test 2. Peak exercise ECG with no ischemic changes 3. There were no cardiac dysrhythmias pretest, during exercise, or recovery 4. Rest and stress SPECT Cardiolite nuclear imaging demonstrate relative uniform tracer uptake and myocardial perfusion appearing within normal limits. 5. The gated Cardiolite study reports an LVEF of 71%. This note was generated with [employer] software. It may contain incorrect words, spelling, and punctuation that were not noted in checking the note before signing.
== END | disposition home or self-care (01) ==
PROVIDERS: PCP Family Medicine; Referring Provider Family Medicine; Visit Provider Family Medicine
DX: R07.9 Chest pain, unspecified (principal)
CPT/HCPCS: 78452; 93017; A9500

== ENCOUNTER 2023-10-16 17:00 | Emergency (ER) | payer MEDICARE, SELFPAY ==
[2023-10-16 17:02] VITALS: BP 114/85; PULSE 91; RESP 18; TEMP 36.5; O2SAT 97; BMI 26.5
--- NOTE | 2023-10-16 17:35 | EDS_ITS ---
HPI History of Present Illness Chief Complaint: Dizziness [facility] Medical History Alcohol use Prostate disease DVT (deep venous thrombosis) Back pain History of diverticulitis Non-smoker Hypertension Acid reflux Reflux esophagitis Hyperparathyroidism Hypertension Home Medications ?Medication ?Instructions ?Recorded ?Last Taken ?Type pantoprazole 40 mg tablet,delayed 40 mg PO DAILY #90 tabs 06/01/23 Unknown Rx release alfuzosin 10 mg tablet,extended 10 mg PO DAILY #90 tabs 06/19/23 Unknown Rx release 24 hr (Uroxatral) pantoprazole 20 mg tablet,delayed 20 mg PO DAILY #30 tabs 08/24/23 Unknown Rx release valsartan 320 mg tablet 320 mg PO DAILY #30 tabs 09/24/23 Unknown Rx valsartan 320 1 tab PO DAILY #90 tabs 10/01/23 Unknown Rx mg-hydrochlorothiazide 12.5 mg tablet Allergy/AdvReac Type Severity Reaction Status Date / Time No Known Allergies Allergy Verified 10/16/23 17:02 Family History Father CVA (cerebral vascular accident) Hypertension Surgical History Hx of colonoscopy Hx of left cataract extraction H/O parathyroidectomy H/O lithotripsy History of knee surgery History of back surgery Social History Smoking Status: Never smoker alcohol intake: current alcohol intake frequency: holidays/special occasions only substance use type: does not use what type of physical activity do you participate in: running, bicycling and weight training frequency: daily EXAM Physical Exam Const Vital Signs: 10/16/23 17:02 10/16/23 17:55 10/16/23 19:01 Temperature 97.7 F L Temperature Source Temporal Pulse Rate 91 77 Pulse Rate [Lying] 81 Pulse Rate [Sitting (for 1 minute prior to obtaining)] 81 Respiratory Rate 18 17 Blood Pressure 114/85 H 109/73 Blood Pressure [Lying] 119/76 Blood Pressure [Sitting (for 1 minute prior to obtaining)] 119/84 H Blood Pressure [Standing (for 1 minute prior to obtaining)] 127/85 H Blood Pressure Mean 94 85 Blood Pressure Mean [Lying] 90 Blood Pressure Mean [Sitting (for 1 minute prior to obtaining)] 95 Blood Pressure Mean [Standing (for 1 minute prior to obtaining)] 99 Pulse Ox 97 97 Oxygen Delivery Method Room Air Room Air [facility] Narrative Medical decision making narrative: HISTORY OF PRESENT ILLNESS: 68-year-old male presents with dizziness. He also notes a headache. He notes dizziness has been ongoing since May. He notes the dizziness is not associated with exertion, no change in position. He notes the dizziness comes on randomly. He states he thinks it could be a panic attack. States is gotten worse over the last 2 to 3 days. States he has perioral numbness, dizziness and fatigue. He states on prior evaluations he had thyroid abnormalities but cannot detail with these abnormalities were. He denies alcohol use, other drug use including cocaine or methamphetamine. He notes his headache was gradual in onset and not associated syncope, seizure, focal weakness or visual changes. He denies any chest pain. Denies any vomiting. Denies any volume loss. Notes normal appetite. He does complain of mild nausea. He denies any urinary complaints. Denies any changes to bowel habits. Denies any abdominal pain. Denies any shortness of breath cough or fever REVIEW OF SYSTEMS: Pertinent positives: Headache, dizziness Pertinent negatives: Chest pain, palpitations, cough, fever PHYSICAL EXAM: Nursing triage notes reviewed, Vital signs reviewed Constitutional: please see [facility] [place] HENT: MMM Eyes: Pupils equal round and reactive to light, Extraocular muscles intact Neck: No stridor, no JVD, full neck ROM Lungs: Clear to auscultation, No wheezing or rales. No increased work of breathing, no conversational dyspnea, no accessory muscle use, no nasal flaring. No respiratory distress noted Heart: Regular rate and rhythm, No murmurs, No rubs and No gallops, 2+ distal pulses (radial, femoral, posterior tibial) in all extremities Abdomen: Soft, there is no tenderness, rigidity, rebound or guarding, no obvious peritoneal signs, no palpable pulsatile abdominal masses, no auscultated abdominal bruit : No CVAT Extremities: No edema Neuro: Alert and oriented x3, neuro exam at baseline, cranial nerves II through XII are intact. No pain with extraocular muscle movement. There is negative test of skew. 5 of 5 strength in upper and lower extremities in flexion extension. Intact sensation to light touch in upper and lower extremity dermatomes. No truncal or extremity ataxia. No dysdiadochokinesia. Normal gait. 2+ reflexes in upper and lower extremities. No meningeal signs. Negative Babinski. NIH of 0. Skin: No rash or lesions noted MEDICAL DECISION MAKING: Chief Complaint: Headache/dizziness External records reviewed: Reviewed: Brain MRI from 2019 shows no acute intracranial abnormality or masses Factors affecting care: Prostate disease, hypertension, diverticulitis, DVT, alcohol use Social determinants of health: history of alcohol abuse next feel History obtained from others: Consults: none MDM Narrative: The patient was hemodynamically stable, afebrile, nontoxic-appearing. Exam without focal neurologic deficits. No cranial nerve deficits. I considered the following differential diagnosis: ICH, arrhythmia, anemia, electro disturbance, CVA, dehydration I obtained a broad lab and imaging workup to further elucidate etiology of patient's complaints. ALL IMAGES (IF OBTAINED) HAVE BEEN PERSONALLY REVIEWED AND INTERPRETED BY MYSELF. EKG with normal sinus rhythm, normal axis, normal intervals, no STEMI CT scan of the head without contrast shows no evidence of mass or bleed I have personally reviewed the patient's chest x-ray. Chest x-ray is unremarkable for pulmonary edema, pneumothorax, pneumonia or focal cardiopulmonary abnormality. CBC with leukocytosis suggestive of systemic inflammation, no anemia or thrombocytopenia High-sensitivity troponin is negative, no evidence of myocardial ischemia BMP with mild hypokalemia, no evidence of SHAYLEE TSH within normal limits, free T4 within normal limits, free T3 borderline low On reevaluation patient's repeat neurologic exam intact. Discussed labs images and further home treatment as well as follow-up. Patient is appropriate discharge home there is no sign of any life-limiting etiology to explain his headache or dizziness. Certainly there was no focal deficits or NIH stroke scale criteria to suggest posterior stroke or CVA at this time. The patient and/or family, caregivers express understanding. The patient and/or family, caregivers agrees with the plan. Shared decision making: I will have a discussion with the patient and or visitors regarding risk/benefits of further testing or admission. They will be made aware of of the risk/benefits inherent in this decision they will be given the opportunity t o voice understanding. Total critical care time today provided was at least 0 minutes. This excludes separately billable procedures. Critical care time (if documented) is secondary to the patient having high probability of clinically significant/life threatening deterioration in the patient's condition which required my urgent intervention. Impression: 1. Dizziness 2. Headache 3. Anxiety Dispo: Discharge home This note was generated with [employer] dictation software. It may contain incorrect words, spelling, and punctuation that were not noted in review of the chart prior to signing. Lab Data Labs: Laboratory Results - last 24 hr 10/16/23 17:35 WBC 11.1 H RBC 4.71 Hgb 14.1 Hct 42.5 MCV 90.2 MCH 29.9 MCHC 33.2 RDW Std Deviation 42.6 RDW Coeff of Raghu 12.8 Plt Count 288 MPV 9.2 Sodium 138 Potassium 3.3 L Chloride 107 Carbon Dioxide 26.0 Anion Gap 5 BUN 16 Creatinine 1.00 Estim Creat Clear Calc 68.74 Est GFR (MDRD) Af Amer 95 Est GFR (MDRD) Non-Af 79 BUN/Creatinine Ratio 16.1 Glucose 92 Calcium 8.9 Troponin I High Sens 3 TSH 2.760 Free T4 0.77 Free T3 pg/dL 2.1 L Radiography Diagnostic Testing: Clinical Impression(s) from Imaging Studies Brain CT 10/16/23 17:49 IMPRESSION: Mild atrophy and periventricular white matter ischemic change. No evidence for obstructive hydrocephalus mass or acute bleed. If concern for acute infarct MRI recommended Electronically Signed: Newton Colbert MD at 18:47 EDT , Chest X-Ray 10/16/23 18:17 IMPRESSION: No acute cardiopulmonary pathology. Electronically Signed: Newton Colbert MD at 18:45 EDT , Discharge Plan Triage Chief Complaint: Dizziness Other Complaint: Headache ED Provider: Paolo Eddy Dx/Rx/DC Orders Prescriptions: No Action pantoprazole 20 mg tablet,delayed release (DR/EC) 20 mg PO DAILY Qty: 30 1RF pantoprazole 40 mg tablet,delayed release (DR/EC) 40 mg PO DAILY Qty: 90 3RF alfuzosin [Uroxatral] 10 mg tablet extended release 24 hr 10 mg PO DAILY Qty: 90 1RF Rx Instructions: administer after the same meal each day valsartan 320 mg tablet 320 mg PO DAILY Qty: 30 1RF valsartan-hydrochlorothiazide 320-12.5 mg tablet 1 tab PO DAILY Qty: 90 0RF Primary Care Provider: Blaze Howard Referrals: Blaze Howard, DO [Primary Care Provider] - Print Language: Citizen [place]
--- NOTE | 2023-10-16 17:49 | EKG12_ITS ---
Test Reason : DIZZY Blood Pressure : / mmHG Vent. Rate : 085 BPM Atrial Rate : 085 BPM P-R Int : 168 ms QRS Dur : 092 ms QT Int : 372 ms P-R-T Axes : 022 004 001 degrees QTc Int : 442 ms Normal sinus rhythm Normal ECG Confirmed by MANUEL GHOSH, HEIDI ([id number]), pictures editor YOSELIN ROBLES ([id number]) on 10/17/2023 1:22:36 PM Referred By: Confirmed By:HEIDI JACKSON MD
--- NOTE | 2023-10-16 17:49 | CT_ITS ---
STUDY: CT BRAIN WITHOUT CONTRAST REASON FOR EXAM: Male, 68 years old. dizziness, QUINTERO RADIATION DOSAGE (If Supplied By Facility): CTDIvol = ( 44.99 ) mGy, DLP = ( 931.09 ) mGycm TECHNIQUE: Transaxial CT imaging of the brain was performed without administration of intravenous contrast material. Individualized dose optimization techniques were used for this CT. COMPARISON: No relevant priors. FINDINGS: Normal soft tissue structures. Normal calvarium. Mild atrophy and periventricular white matter ischemic changes. Normal basal ganglia and thalami. Normal brainstem. Normal cerebellum. There is no intracranial hemorrhage. There are no findings of an acute ischemic infarction. There is mild mucosal thickening of the ethmoid air cells bilaterally.. Postsurgical changes of left orbit CT/Brain/Head without Contrast IMPRESSION: Mild atrophy and periventricular white matter ischemic change. No evidence for obstructive hydrocephalus mass or acute bleed. If concern for acute infarct MRI recommended Electronically Signed: Newton Colbert MD at 18:47 EDT ,
[2023-10-16 17:55] VITALS: BP 119/76; BP 119/84; BP 127/85; PULSE 81
[2023-10-16] MEDS: Acetaminophen 325 MG Tablet PO (18:01)
[2023-10-16] MEDS: LORazepam 2 MG/ML Syringe 1 MG IV (18:02)
[2023-10-16] MEDS: 0.9% Normal Saline (1000mL) 1,000 ML 999 ML IV (18:05)
[2023-10-16] MEDS: Metoclopramide 10 MG/2 ML Vial 5 MG IV (18:05)
[2023-10-16 18:10] LABS: Hematocrit 42.5 % (40-54); Hemoglobin 14.1 g/dL (13.0-16.5); Mean Corp Hgb Conc 33.2 g/dL (32-36); Mean Corpuscular Hgb 29.9 pg (27.0-32.0); Mean Corpuscular Volume 90.2 fL (80-94); Mean Platelet Vol. 9.2 fl (6.2-12.0); Platelet Count 288 K/mm3 (150-450); RBC Distribution Width CV 12.8 % (11.6-14.6); RBC Distribution Width SD 42.6 fl (35.1-43.9); Red Blood Count 4.71 M/mm3 (4.6-6.2); White Blood Count 11.1 K/mm3 (4.4-11.0)
--- NOTE | 2023-10-16 18:17 | RAD_ITS ---
STUDY: X-RAY CHEST REASON FOR EXAM: Male, 68 years old. dizziness TECHNIQUE: AP portable COMPARISON: September 23, 2023 FINDINGS: The lungs are clear and expanded. There is no demonstrated pleural abnormality. Normal size heart. Normal mediastinum and damine. Normal visualized pulmonary arteries. Normal visualized aortic arch and descending thoracic aorta. Dorsal spine demonstrates degenerative change. Normal visualized ribs, clavicles, and shoulders. There is no demonstrated abnormality of the visualized soft tissue structures of the upper abdomen. RAD/Chest 1 View (Portable) IMPRESSION: No acute cardiopulmonary pathology. Electronically Signed: Newton Colbert MD at 18:45 EDT ,
[2023-10-16 18:29] LABS: Anion Gap 5 (5-15); BUN 16 mg/dL (7-18); BUN/Creat Ratio 16.1 RATIO (10-20); Calcium,Total 8.9 mg/dL (8.5-10.1); Chloride 107 mmol/L (98-107); EST Glomerular Filtration Rate 79 mL/min (>60); Est Glom Filt Rate - Afr Amer 95 mL/min (>60); Estimated Creatinine Clearance 68.74 ml/min; Free T3 2.1 pg/mL (2.18-3.98); Glucose 92 mg/dL (74-106); Potassium 3.3 mmol/L (3.5-5.1); Sodium Level 138 mmol/L (136-145); T4 Free Direct 0.77 ng/dL (0.76-1.46); Troponin-I HS 3 pg/mL (3.0-78.0)
[2023-10-16 19:01] VITALS: BP 109/73; PULSE 77; RESP 17; O2SAT 97
[2023-10-16 20:41] VITALS: BP 107/69; PULSE 62; RESP 16; TEMP 36.6; O2SAT 98
== END 2023-10-16 20:46 | disposition home or self-care (01) ==
PROVIDERS: Emergency Provider Emergency Medicine; PCP Family Medicine; Visit Provider Emergency Medicine
DX: R42 Dizziness and giddiness (principal); F41.9 Anxiety disorder, unspecified; E87.6 Hypokalemia; R51.9 Headache, unspecified; I10 Essential (primary) hypertension; R11.0 Nausea; Z86.718 Personal history of other venous thrombosis and embolism; Z86.19 Personal history of other infectious and parasitic diseases; K21.9 Gastro-esophageal reflux disease without esophagitis
CPT/HCPCS: 70450; 71045; 80048; 84439; 84443; 84481; 84484; 85027; 93005; 96361; 96374; 96375; 99285; J7030; A4216

== ENCOUNTER → 2024-01-17 | Outpatient (CLI) | payer MEDICARE, SELFPAY ==
--- NOTE | 2024-01-17 09:45 | CDU_ITS ---
Reason For Study: Cerebral infarction Rt. Velocities/BP Lt. Velocities/BP Prox CCA 86.4/19.2 cm/sec. Prox CCA 73.5/18.6 cm/sec. Mid CCA 75.9/23 cm/sec. Mid CCA 77.9/19.5 cm/sec. Dist CCA 68.3/19.2 cm/sec. Dist CCA 74.4/17.7 cm/sec. Prox ICA 43.9/11.6 cm/sec. Prox ICA 68.3/20.3 cm/sec. Mid ICA 55.2/20.3 cm/sec. Mid ICA 59.6/20.3 cm/sec. Dist ICA 71.8/18.4 cm/sec. Dist ICA 47.4/17.7 cm/sec. Rt. ICA/CCA = 0.95. Lt. ICA/CCA = 0.88. Prox ECA 74.9/16.3 cm/sec. Prox ECA 67.4/13.3 cm/sec. Rt. Vert. 34.3/11.6 cm/sec. Lt. Vert. 35.2/10.7 cm/sec. Right Extracranial There is intimal thickening but no significant atherosclerotic plaque noted in the right common carotid artery. There is intimal thickening but no significant atherosclerotic plaque noted in the right internal carotid artery. There is intimal thickening but no significant atherosclerotic plaque noted in the right external carotid artery. Antegrade flow is noted in the right vertebral artery. Left Extracranial There is intimal thickening but no significant atherosclerotic plaque noted in the left common carotid artery. There is intimal thickening but no significant atherosclerotic plaque noted in the left internal carotid artery. There is intimal thickening but no significant atherosclerotic plaque noted in the left external carotid artery. Antegrade flow is noted in the left vertebral artery. Procedure Carotid Duplex 00117. This is a Carotid Duplex examination using B-mode, color flow and specral Doppler. Exam performed in department. VL/Carotid Duplex Ultrasound Interpretation Summary Normal right extracranial internal carotid. Normal left extracranial internal carotid. Patent and antegrade vertebrals bilaterally. Ordering Physician: Alverto Desouza Referring Physician: [place] Howard M.D. Performed By: Maria Esther Devries RVT
--- NOTE | 2024-01-17 09:45 | ECHOD_ITS ---
Version 2 Reason For Study: DYSPNEA Procedure This was a 2D Doppler, Color Flow transthoracic echocardiogram. Exam performed in department. Left Ventricle Normal LV size. The estimated ejection fraction is 65 %. No evidence for diastolic dysfunction. No regional wall motion abnormalities noted. Right Ventricle Normal RV size. Normal systolic function. Atria The left and right atria are normal. Bubble contrast study is negative for PFO/ASD. No doppler evidence for ASD. Mitral Valve There is no mitral valve stenosis. Trivial mitral valve insufficiency. Tricuspid Valve There is no tricuspid stenosis. Trivial tricuspid valve insufficiency. Pulmonary artery systolic pressure is 25 mmHg. Aortic Valve Trisinus/trileaflet aortic valve. There is no aortic stenosis. Mild (1+) aortic valve insufficiency. Pulmonic Valve There is no pulmonic valvular stenosis. No pulmonic valve insufficiency. Great Vessels Normal aortic root. Pericardium/Pleural No pericardial effusion. Medication 22 gauge I.V. with prn adaptor inserted into right arm. Performed a rapid injection of agitated mix of 9 cc saline and 1cc air to assess for atrial septal defect. MMode/2D Measurements & Calculations LVIDd: 4.6 cm IVSd: 1.4 cm LVOT diam: 2.1 cm LVIDs: 3.5 cm LVPWd: 1.2 cm RVDd: 3.5 cm FS: 22.4 % LVOT area: 3.6 cm2 asc Aorta Diam: 4.4 cm LAV(MOD-bp): 28.9 ml LVAd ap4: 24.8 cm2 LAV(MOD-bp) Indexed: 14.7 ml/m2 LVLd ap4: 8.0 cm LAV(MOD-sp2): 37.4 ml EDV(MOD-sp4): 65.7 ml LAV(MOD-sp4): 22.5 ml EDV(sp4-el): 65.7 ml LVAs ap4: 14.5 cm2 LVLs ap4: 6.2 cm ESV(MOD-sp4): 28.9 ml ESV(sp4-el): 28.6 ml EF(MOD-sp4): 56.0 % EF(sp4-el): 56.5 % SV(MOD-sp4): 36.8 ml SV(sp4-el): 37.1 ml LA A4 area: 11.4 cm2 SI(MOD-sp4): 18.7 ml/m2 RA A4 area: 11.9 cm2 Time Measurements MV dec time: 0.31 sec Doppler Measurements & Calculations MV E max andrés: 54.0 cm/sec Lat Peak E' Andrés: 10.5 cm/sec Med Peak E' Andrés: 7.3 cm/sec MV A max andrés: 88.3 cm/sec E/E' lat: 5.1 E/E' med: 7.4 MV E/A: 0.61 MV dec slope: 173.3 cm/sec2 Ao V2 max: 126.2 cm/sec AI max andrés: 415.9 cm/sec Ao max P.4 mmHg AI max P.5 mmHg Ao V2 mean: 89.2 cm/sec AI dec slope: 203.2 cm/sec2 Ao mean P.6 mmHg AI P1/2t: 599.4 msec Ao V2 VTI: 24.5 cm AV (velocity ratio): 1.0 NIKUNJ(I,D): 3.6 cm2 NIKUNJ(V,D): 3.4 cm2 LV V1 max: 119.7 cm/sec SV(LVOT): 87.5 ml PA V2 max: 84.5 cm/sec LV V1 max P.7 mmHg LV V1 mean P.1 mmHg LV V1 mean: 82.5 cm/sec LV V1 VTI: 24.6 cm TR max andrés: 233.6 cm/sec TR max P.8 mmHg ECHO/Echo Complete Interpretation Summary The estimated ejection fraction is 65 %. Trivial mitral valve insufficiency. Mild (1+) aortic valve insufficiency. Ordering Physician: Alverto Desouza Referring Physician: Alverto Desouza Performed By: Carla Correa and Student
== END | disposition home or self-care (01) ==
LOC: CVS 09:43
PROVIDERS: PCP Family Medicine; Referring Provider Psychiatry & Neurology Neurology; Visit Provider Psychiatry & Neurology Neurology
DX: R06.00 Dyspnea, unspecified (principal); Z86.73 Personal history of transient ischemic attack (TIA), and cerebral infarction without residual deficits
CPT/HCPCS: 93306; 93880; A4216

== ENCOUNTER → 2024-11-26 | Outpatient (CLI) | payer MEDICARE, SELFPAY ==
--- NOTE | 2024-11-26 09:05 | LES_PTH ---
PATIENT: CIARAN BARBOSA Jr. LOC: [facility] U#:[id number] AGE/SX: 69/M ROOM: RE11/26/[address]: Dr. Blaze Howard DO : 1955 BED: DIS: 11/26/2024 SPEC #: [id number] RECD: 11/26/24 12:17 STATUS: TRAY REItzel #: [id number] ROGER: 11/26/24 09:[address]: Blaze Howard DEPT: SURGICAL PATHOLOGY RECD BY: Juan Carlos Brown Tissues: A - Skin of back, NOS Procedures: Surgery Specimen Level IV HEADER OPERATION: Skin excision PRE-OP DIAGNOSIS: Confirmed basal cell carcinoma TISSUE SUBMITTED: A- Basal cell of back MICROSCOPIC DIAGNOSIS A. Skin, back, excision: * Basal cell carcinoma, surgical margins free. * Scar and associated reactive changes consistent with a previous surgical procedure or other trauma. MICROSCOPIC DESCRIPTION Slides are reviewed. GROSS DESCRIPTION A. Received in formalin labeled with the patient's name and date of . Designated as basal cell of back is a 3.9 x 0.7-1.0 cm garcia skin ellipse devoid of orientation, excised to a depth ranging 0.2 cm to 0.6 cm. The resection margin is inked green. The epidermal surfaces slightly wrinkled with a central, possible pale scar (0.6 x 0.5 cm) located 0.2 cm from the peripheral edge. The specimen is serially sectioned and entirely submitted in 4 cassettes. MS 11/26/2024 CPT:30969
--- NOTE | 2024-11-26 09:05 | LES_PTH ---
PATIENT: CIARAN BARBOSA Jr. LOC: [facility] U#:[id number] AGE/SX: 69/M ROOM: RE11/26/[address]: Dr. Blaze Howard DO : 1955 BED: DIS: 11/26/2024 SPEC #: [id number] RECD: 11/26/24 12:17 STATUS: TRAY REItzel #: [id number] ORGER: 11/26/24 09:[address]: Blaze Howard DEPT: SURGICAL PATHOLOGY RECD BY: Juan Carlos Brown Tissues: A - Skin of back, NOS Procedures: Surgery Specimen Level IV HEADER OPERATION: Skin excision PRE-OP DIAGNOSIS: Confirmed basal cell carcinoma TISSUE SUBMITTED: A- Basal cell of back MICROSCOPIC DIAGNOSIS A. Skin, back, excision: * Basal cell carcinoma, surgical margins free. * Scar and associated reactive changes consistent with a previous surgical procedure or other trauma. MICROSCOPIC DESCRIPTION Slides are reviewed. GROSS DESCRIPTION A. Received in formalin labeled with the patient's name and date of . Designated as basal cell of back is a 3.9 x 0.7-1.0 cm garcia skin ellipse devoid of orientation, excised to a depth ranging 0.2 cm to 0.6 cm. The resection margin is inked green. The epidermal surfaces slightly wrinkled with a central, possible pale scar (0.6 x 0.5 cm) located 0.2 cm from the peripheral edge. The specimen is serially sectioned and entirely submitted in 4 cassettes. MD 11/26/2024 CPT:72275
== END | disposition home or self-care (01) ==
LOC: LABSPEC 12:32
PROVIDERS: PCP Family Medicine; Referring Provider Family Medicine; Visit Provider Family Medicine
DX: C44.519 Basal cell carcinoma of skin of other part of trunk (principal)
CPT/HCPCS: 88305